=== PATIENT | female | born 1935 | race Caucasian/White ===

== ENCOUNTER 2017-11-19 01:32 | Emergency (ER) | payer MEDICARE, BC ==
[2017-11-19] MEDS ORDERED: Morphine INJ* 2 MG/ML 1 ML SYRINGE (TWO MG - NEW SYRINGE VERSION) IV ONE (02:08)
[2017-11-19] MEDS ORDERED: Labetalol IV* 5 MG/ML 20 ML VIAL IV PUSH ONE (02:08)
[2017-11-19] MEDS ORDERED: Ondansetron INJ* 2 MG/ML VIAL IV ONE (02:09)
[2017-11-19 02:33] LABS: ABS Basophils 0 10^3/ul (0-0.2); ABS Eosinophils 0.2 10^3/ul (0-0.6); ABS Lymphocytes 2.1 10^3/ul (1.0-4.8); ABS Monocytes 0.5 10^3/ul (0-0.8); ABS Neutrophils 3.6 10^3/ul (1.5-7.7); ABS Nucleated RBC 0 10^3/ul; Eosinophil % 3.1 % (0-6); Hematocrit 40 % (35-47); Hemoglobin 13.1 g/dl (12.0-16.0); Lymphocyte % 32.8 % (25-47); Mean Corpuscular HGB Conc 33 g/dl (31-36); Mean Corpuscular Hemoglobin 30 pg (27-31); Mean Corpuscular Volume 89 fL (80-97); Mean Platelet Volume 9 um3 (7.4-10.4); Nucleated Red Blood Cells % 0; Platelet Count 243 10^3/ul (150-450); Red Blood Count 4.43 10^6/ul (4.0-5.4); Red Cell Distribution Width 13 % (10.5-15); White Blood Count 6.5 10^3/ul (3.5-10.8)
[2017-11-19 02:40] LABS: INR 0.9 (0.77-1.02)
[2017-11-19 02:43] LABS: EGFR Non-African American 76.3 (>60)
[2017-11-19] MEDS ORDERED: Potassium Chlor TAB* 20 MEQ TAB.ER PO ONE (02:57)
--- NOTE | 2017-11-19 03:47 | ED ---
Laz Lynn Stephanie, scribed for Quinton Camejo MD on 11/19/17 at 0211 . Headache - HPI Summary HPI Summary: The pt is an 82 y/o F presenting to the ED with c/o LINO that began this afternoon. Symptoms include high blood pressure. The pt denies vomiting. The LINO is rated as a 5 in severity. The LINO feels better now than at onset. - History Of Current Complaint Chief Complaint: EDHeadache Stated Complaint: HEADACHE, HIGH BP Time Seen by Provider: 11/19/17 02:08 Hx Obtained From: Patient Onset/Duration: Gradual Onset, Started hours ago, Still Present Currently Pain Is: Current Pain Scale(0-10)= - 5 Timing: Constant Aggravating Factor: Nothing Allevating Factors: Nothing - Allergies/Home Medications Allergies/Adverse Reactions: Allergies Allergy/AdvReac Type Severity Reaction Status Date / Time codeine Allergy Rash Verified 11/19/17 01:43 PMH/Surg Hx/FS Hx/Imm Hx Endocrine/Hematology History: Denies: Hx Diabetes Cardiovascular History: Reports: Hx Hypertension, Hx Valvular Heart Disease - mitral valve replacement Denies: Hx Pacemaker/ICD GI History: Reports: Hx Gastroesophageal Reflux Disease History: Denies: Hx Renal Disease Musculoskeletal History: Denies: Hx Osteoporosis Sensory History: Denies: Hx Hearing Aid Psychiatric History: Denies: Hx Panic Disorder - Cancer History Cancer Type, 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 MITRAL VALVE REPAIR-PT HAS CARDS THAT STATE MRI SAFE NO METAL 2013. TUBAL LIGATION. BILATERAL CATARACT SURGERY Infectious Disease History: No Infectious Disease History: Denies: Traveled Outside the [place] in Last 30 Days - Family History Known Family History: Positive: Hypertension - Social History Occupation: Retired Lives: With Family Alcohol Use: None Substance Use Type: Reports: None Smoking Status (MU): Never Smoked Tobacco Review of Systems Negative: Fever Negative: Vomiting Positive: Headache All Other Systems Reviewed And Are Negative: Yes Physical Exam - Summary Physical Exam Summary: GENERAL: Patient is a well-developed and nourished FEMALE who is lying comfortable in the stretcher. Patient is not in any acute respiratory distress. HEAD AND FACE: No signs of trauma. No ecchymosis, hematomas or skull depressions. No sinus tenderness. EYES: PERRLA, EOMI x 2, No injected conjunctiva, no nystagmus. EARS: Hearing grossly intact. Ear canals and tympanic membranes are within normal limits. MOUTH: Oropharynx within normal limits. NECK: Supple, trachea is midline, no adenopathy, no JVD, no carotid bruit, no c- spine tenderness, neck with full ROM. CHEST: Symmetric, no tenderness at palpation LUNGS: Clear to auscultation bilaterally. No wheezing or crackles. CVS: Regular rate and rhythm, S1 and S2 present, no murmurs or gallops appreciated. ABDOMEN: Soft, non-tender. No signs of distention. No rebound no guarding, and no masses palpated. Bowel sounds are normal. EXTREMITIES: FROM in all major joints, no edema, no cyanosis or clubbing. NEURO: Alert and oriented x 3. No acute neurological deficits. Speech is normal and follows commands. SKIN: Dry and warm Triage Information Reviewed: Yes Vital Signs On Initial Exam: Initial Vitals Temp Pulse Resp BP Pulse Ox 97.9 F 91 16 179/85 96 11/19/17 01:40 11/19/17 01:40 11/19/17 01:40 11/19/17 01:40 11/19/17 01:40 Vital Signs Reviewed: Yes Diagnostics - Vital Signs Vital Signs Temp Pulse Resp BP Pulse Ox 11/19/17 01:40 97.9 F 91 16 179/85 96 - Laboratory Result Diagrams: 11/19/17 02:10 11/19/17 02:10 Lab Statement: Any lab studies that have been ordered have been reviewed, and results considered in the medical decision making process. 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 Comparison to prior studies is recommended. Headache Course/Dx - Course Course Of Treatment: The pt is an 82 y/o F presenting to the ED with c/o LINO that began earlier this evening with elevated BP. The pt was given Labetalol 10 mg IV. The pt's BP has decreased, and the pt's LINO is better. She will be dischrged home. - Diagnoses Provider Diagnoses: Hypertension, Headache Discharge - Discharge Plan Condition: Stable Disposition: HOME Patient Education Materials: Migraine Headache (ED), Hypertension (ED) Referrals: Coby Washington MD [Primary Care Provider] - 3 Days Additional Instructions: You were given Labetalol 10 mg IV in the ED. RETURN TO EMERGENCY DEPARTMENT FOR ANY NEW OR WORSENING SYMPTOMS The documentation as recorded by the Laz bills Stephanie accurately reflects the service I personally performed and the decisions made by me, Quinton Camejo MD.
[2017-11-19 03:54] VITALS: BP 151/67
--- NOTE | 2017-11-19 07:59 | RAD ---
HISTORY: Headache COMPARISONS: MRI of the brain dated July 06, 2016 TECHNIQUE: Multiple contiguous axial CT scans were obtained of the head without intravenous contrast. FINDINGS: HEMORRHAGE/INFARCT: There is no hemorrhage or acute infarct. MASSES/SHIFT: There is no mass or shift. EXTRA-AXIAL SPACES: There are no extra-axial fluid collections. SULCI AND VENTRICLES: The sulci and ventricles are normal in size and position for the patient's stated age. CEREBRUM: There is a chronic lacunar infarct of the left basal ganglia. BRAINSTEM: There are no focal parenchymal abnormalities. CEREBELLUM: There are no focal parenchymal abnormalities. VESSELS: The vessels are grossly normal. PARANASAL SINUSES: The paranasal sinuses are clear. ORBITS: The orbits are unremarkable. BONES AND SOFT TISSUE: No bone or soft tissue abnormalities are noted. OTHER: None IMPRESSION: 1. NO ACUTE INTRACRANIAL PATHOLOGY. 2. 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
== END 2017-11-19 03:56 | disposition home or self-care (01) ==
LOC: ED 01:32
DX: I10 Essential (primary) hypertension (principal); R51 Headache; Z88.5 Allergy status to narcotic agent
CPT/HCPCS: 36415; 70450; 80053; 85025; 85610; 85730; 96365; 96375; 99283; J2270

== ENCOUNTER 2018-02-10 11:31 | Inpatient (IN) | payer MEDICARE, BC ==
--- NOTE | 2018-02-01 11:59 | HP ---
HISTORY AND PHYSICAL: DATE OF SURGERY: 02/10/18 DATE OF OFFICE VISIT: 01/31/18 SURGEON: Jenny Saldana MD * (DICTATED BY DOV BENDER) PROCEDURE: Left total knee arthroplasty. CHIEF COMPLAINT: Left knee pain. HISTORY OF PRESENT ILLNESS: Ms. Melendez is an 82-year-old female with complaints of left knee pain. She has failed conservative management and elected to proceed with a left total knee arthroplasty which is scheduled for with Dr. Saldana. PAST MEDICAL HISTORY: 1. Hypertension. 2. History of a leaky heart valve. 3. History of melanoma. PAST SURGICAL HISTORY: 1. Heart valve repair. 2. Tonsillectomy. 3. Cataract removal. CURRENT MEDICATIONS: 1. Evista 60 mg daily. 2. Hydrochlorothiazide 25 mg daily. 3. Nasonex as needed. 4. Omeprazole 20 mg daily. 5. Senior multivitamin. 6. Glucosamine chondroitin. 7. Zyrtec for allergies. 8. Ibuprofen. 9. Metoprolol 25 mg twice a day. 10. Aspirin 325 every day. 11. Valsartan 80 mg daily. 12. Citrucel. ALLERGIES: None. FAMILY HISTORY: Parkinson's disease, cancer and coronary artery disease. SOCIAL HISTORY: She is an 82-year-old female. She lives with her . She does not smoke or use drugs. She uses occasional alcohol. REVIEW OF SYSTEMS: A complete 14-point review of systems was reviewed with the patient, it was all negative. She denies history of DVT, PE, hepatitis, HIV, or anesthesia problems. PHYSICAL EXAMINATION GENERAL: She is well developed, well nourished, in no acute distress. VITAL SIGNS: She stands 5 feet 3 inches tall, weighs 156 pounds. Her blood pressure is 160/90 and heart rate is 64. HEENT: Normocephalic, atraumatic. NECK: Supple. No palpable lymph nodes. PULMONARY: The lungs are clear to auscultation bilaterally. CARDIO: Regular rate and rhythm. Strong S1 and S2. ABDOMEN: Soft, nontender, and nondistended. NEUROLOGICAL: She is alert and oriented x3. Cranial nerves II through XII are intact. MUSCULOSKELETAL: Left lower extremity, the skin is intact. There is no open wounds or abrasions. She has a moderate joint effusion and tenderness over the medial and lateral joint line. Range of motion 5 to 120 degrees with patellofemoral crepitus. She has 2+ dorsalis pedis pulses. Intact sensation to lower extremities. Muscle group strengths are intact at 5/5. ASSESSMENT AND PLAN: Ms. Melendez is an 82-year-old female with end-stage osteoarthritis of the left knee. She has failed conservative management and elected to proceed with a left total knee arthroplasty which is scheduled for with Dr. Saldana. Dr. Saldana discussed the risks and benefits of surgery at today's visit and all of her questions were answered. She will follow up with Dr. Saldana 2 weeks after the surgery. DOV BENDER [id number]/CPS #: [id number] MTDD
[~2018-02-10 11:31] MED LIST: Buffered Lidocaine 0.9% SYRIN* 5 ML/SYR SYRINGE INTRADERM ONE
[2018-02-10] MEDS ORDERED: ceFAZolin 2 GM PREMIX (*) 2 GM/50 ML BAG IVPB ONE (11:40)
[2018-02-10] MEDS ORDERED: fentaNYL* 50 MCG/ML 2 ML VIAL (100 MCG VIAL) ONE (12:49)
[2018-02-10] MEDS ORDERED: Midazolam* 1 MG/ML 5 ML VIAL (5 MG) ONE (12:50)
[2018-02-10] MEDS ORDERED: Bupivacaine 0.5% PF 10 ML VIAL INJ ONE (13:09)
[2018-02-10] MEDS ORDERED: Dexamethasone IV* 4 MG/ML 1 ML (4 MG) ONE ×2 (13:26)
[2018-02-10] MEDS ORDERED: Bupivacaine 0.25% SDV* 30 ML ONE (13:29)
[2018-02-10] MEDS ORDERED: Midazolam* 1 MG/ML 2 ML VIAL (2 MG) ONE (13:56)
[2018-02-10] MEDS ORDERED: oxyCODONE/Acetamin 5/325 MG* TAB PO PRN ×3 (14:14→15:48)
[2018-02-10] MEDS ORDERED: HYDROmorphone INJ* 1 MG/ML CARPUJECT SYRINGE IV PRN (14:14)
[2018-02-10] MEDS ORDERED: HYDROcodone/ACETAMIN 5-325 MG* 1 TAB PO PRN (14:14)
[2018-02-10] MEDS ORDERED: fentaNYL* 50 MCG/ML 2 ML VIAL (100 MCG VIAL) IV PRN (14:14)
[2018-02-10] MEDS ORDERED: Naloxone* 0.4 MG/ML 1 ML VIAL IV PRN (14:14)
[2018-02-10] MEDS ORDERED: Ondansetron INJ* 2 MG/ML VIAL IV PRN ×2 (14:14→15:48)
[2018-02-10] MEDS ORDERED: DiMENhydriNATE IV* 50 MG/ML VIAL IV PUSH PRN (14:14)
[2018-02-10] MEDS ORDERED: Ondansetron INJ* 2 MG/ML SYRINGE (from 40/20 VIAL) IV ONE (15:00)
[2018-02-10] MEDS ORDERED: Magnesium Hydroxide LIQ* 30 ML UDC PO PRN (15:48)
[2018-02-10] MEDS ORDERED: Morphine VIAL* 4 MG/ML VIAL (1 ml vial) IV PRN (15:48)
[2018-02-10] MEDS ORDERED: Bisacodyl SUPP* 10 MG SUPP PR PRN (15:48)
[2018-02-10] MEDS ORDERED: Polyethylene Glycol 3350* 17 GM PACKET PO PRN (15:48)
[2018-02-10] MEDS ORDERED: Temazepam CAP* 15 MG PO PRN (15:48)
[2018-02-10] MEDS ORDERED: Cyclobenzaprine TAB* 10 MG PO PRN (15:48)
[2018-02-10] MEDS ORDERED: Ondansetron TAB* 4 MG PO PRN (15:48)
[2018-02-10] MEDS ORDERED: diPHENhydraMINE LIQ* 12.5 MG/5 ML UDC PO PRN (15:48)
[2018-02-10] MEDS ORDERED: diPHENhydraMINE IV* 50 MG/ML 1 ml VIAL (BENADRYL) IV PRN (15:48)
--- NOTE | 2018-02-10 16:38 | RAD ---
Indication: Left knee replacement. 2 views of left knee demonstrates left knee replacement in satisfactory position. No loosening is noted. IMPRESSION: Left knee replacement in satisfactory position.
[2018-02-10] MEDS ORDERED: Warfarin TAB(*) 6 MG PO ONE ×2 (17:00→23:00)
[2018-02-10] MEDS ORDERED: hydrALAZINE IV* 20 MG/ML VIAL IV SLOW PU PRN (17:27)
[2018-02-10] MEDS ORDERED: Valsartan TAB* 80 MG PO ONE (17:28)
[2018-02-10] MEDS: ceFAZolin 1 GM in Dextrose (*) 1 GM/50 ML BAG IVPB SCH (23:21)
[2018-02-10] MEDS: Docusate CAP* 100 MG PO SCH (23:24)
[2018-02-10] MEDS: Magnesium Hydroxide LIQ* 30 ML UDC PO SCH (23:35)
[2018-02-10] MEDS: Metoprolol Tartrate TAB* 50 mg PO SCH (23:36)
--- NOTE | 2018-02-10 23:55 | CONS ---
CC: Dr. Jenny Saldana; Dr. Swenson * CONSULTATION REPORT: DATE OF CONSULT: 02/10/18. CONSULTING PROVIDER: Dr. Jenny Saldana. MY ATTENDING WHILE IN THE HOSPITAL: Dr. Lakshmi Velazquez. PRIMARY CARE PROVIDER: Dr. Swenson. REASON FOR CONSULTATION: Co-management of comorbid medical conditions. HISTORY OF PRESENT ILLNESS: Ms. Melendez is an 83-year-old female with past medical history significant for severe mitral regurgitation status post annuloplasty in 2013, now with [id number] tricuspid regurgitation on recent echo with diastolic dysfunction as well as hypertension, who is status post left total knee arthroplasty. The patient is examined in the postoperative setting and has no pain, but she has no feeling in her legs. She is regaining movement in her right leg, but still is unable to move her left. The patient has spinal anesthesia and a nerve block on her left side. The patient's EBL in surgery was 250. The patient denies chest pain, shortness of breath, nausea, vomiting, dizziness, palpitations, abdominal pain, change in vision. The patient denies any recent illnesses, urinary tract infection. The patient has been having swollen legs since her mitral annuloplasty in 2013, which resolves with recumbency. The patient denies any dyspnea on exertion. The patient has decreased exercise tolerance only related to her left knee pain. The patient has been having issues with her blood pressure and recently had her valsartan and metoprolol increased. The patient held her aspirin 325 mg for 7 days and her valsartan and hydrochlorothiazide this morning. PAST MEDICAL HISTORY: Hypertension, mitral valve regurgitation, status post annuloplasty, history of melanoma on her stomach removed at age 67, grade 2 diastolic dysfunction on her most recent echocardiogram. PAST SURGICAL HISTORY: Mitral valve annuloplasty in 2013 , tonsillectomy, cataract removal, and ganglion cystectomy. CURRENT MEDICATIONS: 1. Evista 60 mg p.o. daily. 2. Hydrochlorothiazide 25 mg p.o. daily. 3. Nasonex 15 mcg both nares as needed. 4. Omeprazole 20 mg p.o. daily. 5. Senior multivitamins one tab p.o. daily. 6. Glucosamine chondroitin daily. 7. Zyrtec 10 mg p.o. daily as needed for allergies. 8. Ibuprofen as needed for pain. 9. Metoprolol tartrate 50 mg twice daily. 10. Aspirin 325 mg p.o. daily. 11. Valsartan 160 mg p.o. daily. 12. Citrucel. 13. Magnesium oxide 250 mg p.o. daily. ALLERGIES: The patient is allergic to CODEINE and LATEX. FAMILY HISTORY: The patient's father of skin cancer. The patient's mother of Alzheimer's disease and also had atrial fibrillation and CAD. The patient's brother of skin cancer. The patient's grandfather, grandmother, and additional grandfather were all due to coronary artery disease. The patient's children are in good health. SOCIAL HISTORY: The patient never smoked or used illicit drugs. The patient drinks 2 to 3 glasses of wine a week. 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 The patient's surrogate decision maker will be her , Sergio Melendez. REVIEW OF SYSTEMS: A 14-point review of systems was reviewed and is negative except as above. PHYSICAL EXAM: General: The patient is an 83-year-old female, who appears stated age and sitting comfortably in bed, in no acute distress. Vital Signs: Temperature 97.2, pulse rate 75, respiratory rate 18, oxygen saturation 96% on room air, blood pressure 188/89. HEENT: Head, normocephalic, atraumatic. Sclerae anicteric. No conjunctival injection. Nasal mucosa moist. Oral mucosa moist. No pharyngeal erythema, discharge or exudate. Neck: Supple, nontender. No lymphadenopathy. No carotid bruits auscultated. No JVD. Cardiac : Regular rate and rhythm. No clicks, murmurs, gallops or rubs. Pulses are 2+ in the bilateral dorsalis pedis, posterior tibialis, and radial areas. No calf tenderness noted. Respiratory: Clear to auscultation bilaterally. No wheezes, rales or rhonchi. Good air exchange bilaterally. Abdomen: Soft, nontender, nondistended. Bowel sounds present and normoactive in all 4 quadrants. No hepatosplenomegaly. No abdominal bruits auscultated. Genitourinary: No suprapubic or CVA tenderness. Villagomez in place, draining clear yellow urine. Neuro: Cranial nerves II through XII intact. Strength preserved in bilateral upper extremities. The patient is able to move her right lower extremities with decreased strength. The patient has no sensation in this extremity. The patient is not able to move or feel anything in her left lower extremity. Alert and oriented x3. Psychiatric: Pleasant and cooperative. DIAGNOSTIC STUDIES/LAB DATA: Laboratory data from preoperative testing; white blood cell count 8.7, hemoglobin 14.3, hematocrit 43, and platelet count 281. INR 0.87, PTT 29.5. Sodium 132, potassium 4.0, chloride 97, carbon dioxide 31, anion gap 4, BUN 21, creatinine 0.69, glucose 86, calcium 9.6. Bilirubin 0.4, AST 20, ALT 15, alkaline phosphatase 36, protein 7.5, albumin 4.1, globulin 3.4. IMPRESSION AND PLAN: Ms. Melendez is an 83-year-old female with past medical history significant for mitral valve regurgitation, hypertension, diastolic dysfunction on echocardiogram, who is status post left total knee arthroplasty and is recovering well. The patient is markedly hypertensive at this time. 1. Postoperative state management per Orthopedics. The patient has no pain at this time. The patient's pain will be controlled with Percocet, oxycodone, and morphine as needed. The patient will have her hemoglobin and hematocrit monitored, bowel regimen per primary team, Villagomez should be removed. 2. Hypertension. The patient is currently markedly hypertensive. We will prescribe hydralazine as needed for high blood pressure. We will also give the patient a half dose of her daily valsartan, which she did not take this morning to help to control her blood pressure. We will resume valsartan tomorrow morning. Continue metoprolol and hold hydrochlorothiazide at this point. This will be re- introduced as indicated as early as tomorrow morning. 3. Mitral valve regurgitation. The patient has swollen legs and no other sign of congestive heart failure. The patient did not have dyspnea on exertion. The patient was recently cleared for surgery by her gold assayer, Dr. Galdino Bauer. Due to hypertension and mitral valve regurgitation as well as diastolic dysfunction evidenced on echocardiogram, the patient will be relatively fluid sensitive and her postoperative fluids have been decreased to 75 mL an hour. The patient should monitor closely for her respiratory status. 4. FEN. The patient will have heart healthy diet without caffeine and fluids as above. 5. DVT prophylaxis. The patient will have Lovenox to warfarin per primary team protocol. 6. Code status. The patient would like to be a full code. The patient's surrogate decision maker is her , Sergio Melendez as above. 6. Disposition. The patient is inpatient, disposition per Ortho. TIME SPENT: Approximately 60 minutes was spent on this consultation, 30 of which was spent [id number] with the patient obtaining history and physical and discussing the treatment plan. This plan has been discussed with my attending, Dr. Lakshmi Velazquez, and she is in agreement. DOV NASH [id number]/CPS #: [id number] LISET
--- NOTE | 2018-02-11 01:04 | PN ---
Hospitalist Progress Note Date of Service: 02/11/18 Called by night nurse due to syncope episode. VSS, patient with no complaints of chest pain or sob. BP noted to be 114/60, ? orthostasis, plan for h and h now, bmp, ekg stat now, and tele, will follow,
[2018-02-11] MEDS: oxyCODONE TAB* 5 MG TAB PO PRN ×2 (01:25→06:28)
[2018-02-11 01:26] LABS: ABS Basophils 0 10^3/ul (0-0.2); ABS Eosinophils 0 10^3/ul (0-0.6); ABS Lymphocytes 0.6 10^3/ul (1.0-4.8); ABS Monocytes 0.5 10^3/ul (0-0.8); ABS Neutrophils 13.7 10^3/ul (1.5-7.7); ABS Nucleated RBC 0 10^3/ul; Eosinophil % 0 % (0-6); Hematocrit 34 % (35-47); Hemoglobin 11.2 g/dl (12.0-16.0); Lymphocyte % 4.3 % (25-47); Mean Corpuscular HGB Conc 33 g/dl (31-36); Mean Corpuscular Hemoglobin 30 pg (27-31); Mean Corpuscular Volume 89 fL (80-97); Mean Platelet Volume 8.5 um3 (7.4-10.4); Nucleated Red Blood Cells % 0; Platelet Count 222 10^3/ul (150-450); Red Blood Count 3.75 10^6/ul (4.0-5.4); Red Cell Distribution Width 14 % (10.5-15)
[2018-02-11 01:42] LABS: EGFR Non-African American 81.3 (>60)
[2018-02-11] MEDS ORDERED: NS 0.9% 500 ML* 500 ML IV ONE (01:59)
[2018-02-11 05:54] LABS: Hematocrit 33 % (35-47); Hemoglobin 10.9 g/dl (12.0-16.0); Mean Platelet Volume 8.8 um3 (7.4-10.4); Platelet Count 215 10^3/ul (150-450)
[2018-02-11 05:57] LABS: INR 1.01 (0.77-1.02)
[2018-02-11 06:13] LABS: EGFR Non-African American 93.7 (>60)
[2018-02-11] MEDS: ceFAZolin 1 GM in Dextrose (*) 1 GM/50 ML BAG IVPB SCH ×2 (06:18→13:44)
[2018-02-11] MEDS ORDERED: Hydrochlorothiazide TAB* 25 MG PO SCH (09:00)
[2018-02-11] MEDS ORDERED: Valsartan TAB* 80 MG PO SCH (09:00)
[2018-02-11] MEDS ORDERED: Valsartan TAB* 160 MG PO SCH (09:00)
[2018-02-11] MEDS: Docusate CAP* 100 MG PO SCH ×2 (09:06→19:46)
[2018-02-11] MEDS: Vitamin THERAPEUTIC TAB PO SCH (09:06)
[2018-02-11] MEDS: Omeprazole CAP* 20 MG PO SCH (09:06)
[2018-02-11] MEDS: Metoprolol Tartrate TAB* 50 mg PO SCH ×2 (09:06→19:46)
[2018-02-11] MEDS: Magnesium Oxide TAB* 400 MG PO SCH (09:06)
[2018-02-11] MEDS: Magnesium Hydroxide LIQ* 30 ML UDC PO SCH ×2 (09:07→19:46)
[2018-02-11] MEDS: Acetaminophen TAB* 325 MG PO PRN ×4 (09:23→22:38)
--- NOTE | 2018-02-11 12:34 | PN ---
Progress Note - Progress Note Date of Service: 02/11/18 SOAP: Subjective: 83 y/o female s/p L TKA by DR Saldana 02/10/2018. Patient with syncopal episode overnight, no improved, no lightheaded/ dizziness. Decreasing narcotic use. VSS, afebrile overnight. Would like to return home. Objective: General- Well appearing, NAD, AO SItting in chair comfortably MSK- L LE- DF/PF = b/l, PT 2+, negative homans sign, Surgical dressing intact, no drainage noted, drain removed by Dr. Saldana in AM. SITLT. Vital Signs Temp 98.2 F 02/11/18 07:35 Pulse 104 02/11/18 07:35 Resp 14 02/11/18 07:35 BP 142/56 02/11/18 07:35 Pulse Ox 93 02/11/18 07:35 Intake & Output 02/10/18 02/11/18 02/11/18 18:59 06:59 18:59 Intake Total 2700 1750 Output Total 1625 695 Balance 1075 1055 Weight 70.942 kg Intake: IV Fluids 2400 500 LR 2400 NS (0.9%) 500 Oral 300 1250 Output: Villagomez 1625 695 Assessment: Stable 83 y/o female s/p L TKA by DR Saldana 02/10/2018. Plan: - DVT prophylaxis- lovenox, coumadin- 6mg tonight. - Continue PT/ OT - Follow up with Dr. Saldana within 10-14 days - H&H - stable - post-op IV ABX - RUnning - Patient would like D/C to home. - Hospitalists following for cards, syncopal episodes. Acetaminophen (Tylenol Tab*) 650 mg PO Q4H PRN PRN Reason: PAIN OR TEMPERATURE Last Admin: 02/11/18 09:23 Dose: 650 mg Bisacodyl (Dulcolax Supp*) 10 mg OH DAILY PRN PRN Reason: constipation Cyclobenzaprine HCl (Flexeril Tab*) 5 mg PO TID PRN PRN Reason: SPASMS Diphenhydramine HCl (Benadryl Iv*) 12.5 mg IV Q6H PRN PRN Reason: PRURITIS Diphenhydramine HCl (Benadryl Liq*) 12.5 mg PO Q6H PRN PRN Reason: itching Docusate Sodium (Colace Cap*) 100 mg PO BID [facility] Last Admin: 02/11/18 09:06 Dose: 100 mg Enoxaparin Sodium (Lovenox(*)) 30 mg SUBCUT Q24H [facility] Cefazolin Sodium/Dextrose (Kefzol 1 Gm In Dextrose Duplex (*)) 1 gm in 50 mls @ 200 mls/hr IVPB Q8H [facility] Stop: 02/11/18 14:14 Last Admin: 02/11/18 06:18 Dose: 200 mls/hr Lactated Ringer's (Lactated Ringers 1000 Ml Bag*) 1,000 mls @ 75 mls/hr IV PER RATE [facility] Last Admin: 02/10/18 20:04 Dose: 75 mls/hr Lactulose (Lactulose*) 30 ml PO Q6H PRN PRN Reason: constipation Magnesium Hydroxide (Milk Of Magnesia Liq*) 30 ml PO BID [facility] Last Admin: 02/11/18 09:07 Dose: 30 ml Magnesium Hydroxide (Milk Of Magnesia Liq*) 30 ml PO Q6H PRN PRN Reason: constipation Magnesium Oxide (Magox 400 Tab*) 400 mg PO DAILY [facility] Last Admin: 02/11/18 09:06 Dose: 400 mg Metoprolol Tartrate (Lopressor Tab*) 50 mg PO BID [facility] Last Admin: 02/11/18 09:06 Dose: 50 mg Morphine Sulfate (Morphine Vial*) 2 mg IV Q2H PRN PRN Reason: PAIN Multivitamins (Theragran Tab*) 1 tab PO DAILY [facility] Last Admin: 02/11/18 09:06 Dose: 1 tab Naloxone HCl (Narcan*) 0.08 mg IV Q2M PRN PRN Reason: severe induced resp depression Stop: 02/11/18 14:13 Omeprazole (Prilosec Cap*) 20 mg PO DAILY [facility] Last Admin: 02/11/18 09:06 Dose: 20 mg Ondansetron HCl (Zofran Inj*) 4 mg IV Q6H PRN PRN Reason: nausea Ondansetron HCl (Zofran Tab*) 4 mg PO Q6H PRN PRN Reason: NAUSEA Oxycodone HCl (Roxycodone Tab*) 10 mg PO Q4H PRN PRN Reason: pain Last Admin: 02/11/18 06:28 Dose: 5 mg Oxycodone/Acetaminophen (Percocet 5/325 Tab*) 2 tab PO Q4H PRN PRN Reason: PAIN Last Admin: 02/11/18 04:14 Dose: 2 tab Oxycodone/Acetaminophen (Percocet 5/325 Tab*) 1 tab PO Q4H PRN PRN Reason: PAIN Last Admin: 02/10/18 23:24 Dose: 1 tab Pharmacy Profile Note (Coumadin Daily Reminder*) 1 note FOLLOW UP 1700 RICHELLE Polyethylene Glycol/Electrolytes (Miralax*) 17 gm PO DAILY PRN PRN Reason: Constipation Temazepam (Restoril Cap*) 15 mg PO BEDTIME PRN PRN Reason: INSOMNIA Warfarin Sodium (Coumadin Tab(*)) 6 mg PO ONCE@1700 ONE PRN Reason: Protocol Stop: 02/11/18 17:01 Laboratory Results - last 24 hr 02/11/18 02/11/18 02/11/18 01:20 01:20 05:24 WBC 15.0 H RBC 3.75 L Hgb 11.2 L 10.9 L Hct 34 L 33 L MCV 89 MCH 30 MCHC 33 RDW 14 Plt Count 222 215 MPV 8.5 8.8 Neut % (Auto) 91.9 H Lymph % (Auto) 4.3 L Moca % (Auto) 3.6 Eos % (Auto) 0 Baso % (Auto) 0.2 Absolute Neuts (auto) 13.7 H Absolute Lymphs (auto) 0.6 L Absolute Monos (auto) 0.5 Absolute Eos (auto) 0 Absolute Basos (auto) 0 Absolute Nucleated RBC 0 Nucleated RBC % 0 INR (Anticoag Therapy) Sodium 132 L Potassium 3.9 Chloride 100 L Carbon Dioxide 26 Anion Gap 6 BUN 21 Creatinine 0.69 Est GFR ( Amer) 104.5 Est GFR (Non-Af Amer) 81.3 BUN/Creatinine Ratio 30.4 H Glucose 182 H Calcium 8.6 02/11/18 02/11/18 05:24 05:24 WBC RBC Hgb Hct MCV MCH MCHC RDW Plt Count MPV Neut % (Auto) Lymph % (Auto) Moca % (Auto) Eos % (Auto) Baso % (Auto) Absolute Neuts (auto) Absolute Lymphs (auto) Absolute Monos (auto) Absolute Eos (auto) Absolute Basos (auto) Absolute Nucleated RBC Nucleated RBC % INR (Anticoag Therapy) 1.01 Sodium 132 L Potassium 3.8 Chloride 101 Carbon Dioxide 25 Anion Gap 6 BUN 21 Creatinine 0.61 Est GFR ( Amer) 120.5 Est GFR (Non-Af Amer) 93.7 BUN/Creatinine Ratio 34.4 H Glucose 160 H Calcium 8.5 L
[2018-02-11] MEDS: Enoxaparin(*) 30 MG/0.3 ML SYR SUBCUT SCH (12:44)
--- NOTE | 2018-02-11 12:53 | OP ---
OPERATIVE REPORT: DATE OF SURGERY: 02/10/18 DATE OF : 35 SURGEON: Jenny Saldana MD CLAIMS ATTORNEY: DOV Art Soraya did help throughout the procedure with preparation of the leg, wound retraction, manip ulation of the knee and wound closure. ANESTHESIOLOGIST: Dr. Smart. ANESTHESIA: Spinal. PRE-OP DIAGNOSIS: Severe end-stage degenerative osteoarthritis of the left knee joint. POST-OP DIAGNOSIS: Severe end-stage degenerative osteoarthritis of the left knee joint. OPERATIVE PROCEDURE: Left total knee arthroplasty. TOURNIQUET TIME: 43 minutes. COMPLICATIONS: None. ESTIMATED BLOOD LOSS: 300 cc. SPECIMEN: Bone and cartilage from the left knee joint sent to Pathology. HARDWARE USED: This is cemented [employer] hardware. Two packages of Simplex bone cement. Fo r the femur, a left size 4 posterior stabilized Legion femoral component. For the tibia, size 3 left Jennifer II tibial baseplate. For the insert, a 9-mm constrained articular insert size 3/4 and for t he patella, a 29- mm 7.5 thickness 3-peg all poly patella. BRIEF HISTORY/INDICATIONS: Ms. Melendez is an 83-year-old female with years of increasingly severe lef t knee pain. Radiographs showed [id number] valgus arthritis. She failed conservative treatment wi th anti-inflammatories, pain medication, intra-articular injection and physical therapy. Due to cont inued pain and decreased quality of life, she elected to undergo left total knee arthroplasty. Inform ed consent was obtained from the patient. She understood the risks of surgery included, but were not limited to bleeding, infection, damage to nearby structures, continued pain, need for further surger y, intraoperative fracture, nerve palsy, hardware failure or loosening, knee stiffness, loss of motio n, stroke, heart attack, blood clot, and . She wished to proceed. INTRAOPERATIVE FINDINGS: Intraoperatively, the patient was noted to have extreme osteopenia. She noble d full thickness loss of cartilage in all 3 compartments. DESCRIPTION OF PROCEDURE: Ms. Melendez was identified in the preanesthesia unit. Her left lower extrem ity was marked as the correct operative side. Informed consent was signed and placed in the chart. The patient was taken to the operating room and placed under spinal anesthesia. A Villagomez catheter was placed. Tourniquet was placed on the left thigh. Left lower extremity was prepped and draped in th e usual sterile fashion. Preop time-out was made to correctly identify the patient, side, and site. Appropriate perioperative antibiotics were given within 1 hour of incision. Tourniquet was inflated and total tourniquet time for this procedure was 44 minutes. A 12-cm midline incision was made with a 10 blade and carried down to the extensor mechanism. A new 10-blade was us ed to make a standard medial parapatellar arthrotomy. The patella was subluxed laterally. Electroca utery was used to subperiosteally elevate the soft tissue off the superomedial tibia to the mid sagit kamila plane. Medial tibial osteophytes were carefully removed. The knee was flexed up. Anterior horn of the lateral meniscus and ACL were sharply released. A drill was used to enter the distal femur. Intramedullary distal femoral cutting guide was placed and pinned into the position. Oscillating sa w was used to make the distal femoral cut. Next, the external rotation guide was pinned on the dista l femur and the distal femur was sized to a size 4. Size 4 multi-cutting jig was pinned on the dista l femur. Oscillating saw was used to make the appropriate chamfer cuts. The PCL was completely released. The tibia was subluxed anteriorly. Extramedullary tibial cutting gu preeti was pinned on the proximal tibia. Oscillating saw was used to make a proximal tibial cut perpend icular to the mechanical axis of the tibia. The bone was carefully removed. The knee was brought ou t into full extension. A spacer block had good fit. Some MCL laxity was noted and this was baseline . Preop amount of MCL laxity. A small amount of soft tissue released laterally, improved the medial and lateral ligamentous balancing. Flexion and extension gaps were well balanced. The knee was fle xed up. Lamina neuro psych sales specialist was placed both medially and laterally. Any remaining meniscus was carefull y removed using electrocautery. A sized 4 left distal femoral trial was impacted onto the distal femur and had excellent fit. The gaviota x for the posterior stabilized implant was prepared using a reamer and box cut osteotome. A size 3 t ibial baseplate with a 9-mm insert trial was placed and the knee was brought out into full extension. Knee had good range of motion from full extension to 130 degrees of flexion with satisfactory martin lofemoral tracking. The patella was everted. A 7-mm of patellar bone and cartilage was carefully re moved using an oscillating saw. Patella was sized to a size 29. Three peg holes were drilled throug h the size 29 guide. A 29 patellar trial was placed and the knee was taken through a range of motion . The patellofemoral tracking was satisfactory. All trials were removed. The tibia was subluxed an teriorly and sized to a size 3. Proximal tibia was prepared using a size 3 keel punch. All bony cut surfaces were copiously irrigated with sterile saline and dried. Final implants were cemented into place starting with the tibia, followed by the femur and last the patella. A 9-mm insert trial was placed and the knee was brought out into full extension. Tourniquet was turned down at 43 minutes. The knee was copiously irrigated. Electrocautery was used to obtain meticulous hemostasis. As soon as the cement was fully cured, the insert trial was removed . Any excess cement was removed from around the capsule and hardware. Final insert chosen was a 9-m m size 3-4 constrained articular insert. This was locked into position on the tibial tray. Stability of the insert was checked and rechecked and noted to be stable. The knee was once again copiously irrigated with sterile saline. Extensor mechanism was closed using interrupted #1 Vicryls over a medium Hemovac drain. The rest of the incision was closed in a layere d fashion using 0 and 2-0 Vicryls. The skin was closed using running 3-0 nylon suture. Sterile Xero form, 4x4s, and Webril were used to cover the incision. Aston wrap and cold pack were placed over this . The patient's anesthesia was reversed without difficulty. She was taken to the PACU in stable cond ition. Intended weightbearing will be weightbearing as tolerated. Intended DVT prophylaxis will be Coumadin with a Lovenox bridge. [id number]/[facility] #: [id number]
[2018-02-11] MEDS ORDERED: Warfarin TAB(*) 6 MG PO ONE (17:00)
--- NOTE | 2018-02-11 18:29 | PN ---
Subjective Date of Service: 02/11/18 Interval History: Patient was seen and examined earlier this AM. Events noted form last night, a syncopal episode likely secondary to orthostatic hypotension. Patient is feeling much better this AM. She ate her breakfast, denies any complaints. No chest pain, headaches, dizziness, dyspnea or SOB. Labs and EKG reviewed, no changes or concerns for hemodynamics. Seen earlier by , Villagomez catheter and TEENA drain removed. Awaiting PT eval to ambulate, anticipate to stay inpatient today. Family History: Unchanged from Admission Social History: Unchanged from Admission Past Medical History: Unchanged from Admission Objective Active Medications: Acetaminophen (Tylenol Tab*) 650 mg PO Q4H PRN PRN Reason: PAIN OR TEMPERATURE Last Admin: 02/11/18 13:40 Dose: 650 mg Bisacodyl (Dulcolax Supp*) 10 mg [place] DAILY PRN PRN Reason: constipation Cyclobenzaprine HCl (Flexeril Tab*) 5 mg PO TID PRN PRN Reason: SPASMS Diphenhydramine HCl (Benadryl Iv*) 12.5 mg IV Q6H PRN PRN Reason: PRURITIS Diphenhydramine HCl (Benadryl Liq*) 12.5 mg PO Q6H PRN PRN Reason: itching Docusate Sodium (Colace Cap*) 100 mg PO BID [facility] Last Admin: 02/11/18 09:06 Dose: 100 mg Enoxaparin Sodium (Lovenox(*)) 30 mg SUBCUT Q24H [facility] Last Admin: 02/11/18 12:44 Dose: 30 mg Lactated Ringer's (Lactated Ringers 1000 Ml Bag*) 1,000 mls @ 75 mls/hr IV PER RATE [facility] Last Admin: 02/10/18 20:04 Dose: 75 mls/hr Lactulose (Lactulose*) 30 ml PO Q6H PRN PRN Reason: constipation Magnesium Hydroxide (Milk Of Magnesia Liq*) 30 ml PO BID [facility] Last Admin: 02/11/18 09:07 Dose: 30 ml Magnesium Hydroxide (Milk Of Magnesia Liq*) 30 ml PO Q6H PRN PRN Reason: constipation Magnesium Oxide (Magox 400 Tab*) 400 mg PO DAILY [facility] Last Admin: 02/11/18 09:06 Dose: 400 mg Metoprolol Tartrate (Lopressor Tab*) 50 mg PO BID [facility] Last Admin: 02/11/18 09:06 Dose: 50 mg Morphine Sulfate (Morphine Vial*) 2 mg IV Q2H PRN PRN Reason: PAIN Multivitamins (Theragran Tab*) 1 tab PO DAILY [facility] Last Admin: 02/11/18 09:06 Dose: 1 tab Omeprazole (Prilosec Cap*) 20 mg PO DAILY [facility] Last Admin: 02/11/18 09:06 Dose: 20 mg Ondansetron HCl (Zofran Inj*) 4 mg IV Q6H PRN PRN Reason: nausea Ondansetron HCl (Zofran Tab*) 4 mg PO Q6H PRN PRN Reason: NAUSEA Oxycodone HCl (Roxycodone Tab*) 10 mg PO Q4H PRN PRN Reason: pain Last Admin: 02/11/18 06:28 Dose: 5 mg Oxycodone/Acetaminophen (Percocet 5/325 Tab*) 2 tab PO Q4H PRN PRN Reason: PAIN Last Admin: 02/11/18 04:14 Dose: 2 tab Oxycodone/Acetaminophen (Percocet 5/325 Tab*) 1 tab PO Q4H PRN PRN Reason: PAIN Last Admin: 02/10/18 23:24 Dose: 1 tab Pharmacy Profile Note (Coumadin Daily Reminder*) 1 note FOLLOW UP 1700 [facility] Last Admin: 02/11/18 17:07 Dose: 1 note Polyethylene Glycol/Electrolytes (Miralax*) 17 gm PO DAILY PRN PRN Reason: Constipation Temazepam (Restoril Cap*) 15 mg PO BEDTIME PRN PRN Reason: INSOMNIA Vital Signs - 8 hr 02/11/18 02/11/18 02/11/18 11:32 15:28 16:00 Temperature 97.4 F 97.9 F Pulse Rate 94 89 Respiratory 16 16 Rate Blood Pressure 117/43 131/44 (mmHg) O2 Sat by Pulse 93 97 93 Oximetry Oxygen Devices in Use Now: None Appearance: Comfortable in bed, finished her breakfast, in NAD. Eyes: No Scleral Icterus, PERRLA Ears/Nose/Mouth/Throat: Clear Oropharnyx, Mucous Membranes Moist Neck: NL Appearance and Movements; NL JVP, Trachea Midline Respiratory: Symmetrical Chest Expansion and Respiratory Effort, Clear to Auscultation Cardiovascular: NL Sounds; No Murmurs; No JVD, RRR Abdominal: NL Sounds; No Tenderness; No Distention Extremities: No Edema, - - LLE with clean and dry HEIDI dressing. No swelling or ecchymosis noted. Sensation intact. Skin: No Rash or Ulcers Neurological: Alert and Oriented x 3, NL Sensation, NL Muscle Strength and Tone Lines/Tubes/Other Access: Clean, Dry and Intact Peripheral IV Nutrition: Taking PO's Result Diagrams: 02/11/18 05:24 02/11/18 05:24 Additional Lab and Data: . Microbiology and Other Data: . Diagnostic Imaging: . EKG Data: EKG INTERPRETATION ECG Report Patient Name CRISTI GAYLE Birthdate 1935 Sex F Order Number [id number] Date of ECG 02/11/2018 01:50:12 Interpretation Sinus rhythm.normal P axis, V-rate 60- 99 - NORMAL ECG - NO SIGNIFICANT CHANGES SINCE THE PREVIOUS RECORD OF 12 Lead 06/01/2016 23:01:30 Electronically signed on 02/11/2018 at 07:33 by Cruz Crowley MD Assess/Plan/Problems-Billing Assessment: An 83 y/o female with PMH of HTN, mitral valve regurgitation and distolic dysfunction, who is POD#1, s/p left total knee arthroplasty, doing better now, after a syncopal episode last night secondary to orthostatic hypotension. - Patient Problems (1) Knee joint replacement status Current Visit: Yes Status: Acute Priority: High Comment: - Management per ortho - PT/OT eval, consider STR at SNF on Wednesday - Pain well controlled (2) Hypertension Current Visit: Yes Status: Acute Comment: - Hypertensive intially immediate post-op period and PACU, then hypotensive rebound likely due to spinal anasthetic and narcotics - BP appears well controlled this AM - Continue Metoprolol, hold HCTZ (3) Syncope Current Visit: Yes Status: Acute Priority: High Comment: - Likely secondary to orthostatic hypotension - H/H rechecked last night, hemodynamically stable - Will continue to monitor (4) Orthostatic hypotension Current Visit: Yes Status: Acute Comment: - Resolved (5) Mitral regurgitation Current Visit: Yes Status: Acute Comment: - Stable (6) DVT (deep venous thrombosis) Current Visit: Yes Status: Acute Comment: - Lovenox to Warfarin per ortho team protocol (7) Full code status Current Visit: Yes Status: Acute Status and Disposition: Inpatient. Anticipate discharge to home on PT, or STR at SNF when medically stable.
[2018-02-12] MEDS: Acetaminophen TAB* 325 MG PO PRN ×3 (03:27→11:58)
[2018-02-12 05:45] LABS: Hematocrit 30 % (35-47); Mean Platelet Volume 8.8 um3 (7.4-10.4); Platelet Count 203 10^3/ul (150-450)
[2018-02-12 05:51] LABS: INR 1.67 (0.77-1.02)
[2018-02-12] MEDS: Magnesium Hydroxide LIQ* 30 ML UDC PO SCH (08:25)
[2018-02-12] MEDS: Magnesium Oxide TAB* 400 MG PO SCH (08:26)
[2018-02-12] MEDS: Omeprazole CAP* 20 MG PO SCH (08:26)
[2018-02-12] MEDS: Metoprolol Tartrate TAB* 50 mg PO SCH (08:26)
[2018-02-12] MEDS: Docusate CAP* 100 MG PO SCH (08:26)
[2018-02-12] MEDS: Vitamin THERAPEUTIC TAB PO SCH (08:26)
--- NOTE | 2018-02-12 10:18 | PN ---
Progress Note - Progress Note Date of Service: 02/12/18 SOAP: Subjective: Pt states she is doing well pain controlled. She denies dizziness or recent syncopal episodes. She is doing well with PT. Denies N/T, F/C, CP/SOB and is doing well otherwise Objective: PE: 83 y/o WDWN F NAD, A&O x 3 LLE- dressing changes, inc c/d/i, no warmth or erythema, +DF/PF ankle, calf soft NT, NVI Vital Signs Temp Pulse Resp BP Pulse Ox 98.2 F 88 16 137/45 98 02/12/18 07:14 02/12/18 07:14 02/12/18 08:00 02/12/18 07:14 02/12/18 08:29 Laboratory Results - last 24 hr 02/12/18 02/12/18 05:36 05:36 Hgb 10.0 L Hct 30 L Plt Count 203 MPV 8.8 INR (Anticoag Therapy) 1.67 H Assessment: Stable 83 y/o female s/p L TKA by DR Saldana 02/10/2018. Has episode syncope post op Plan: - Cont coumadin DVT prophylaxis, Tylenol and tramadol for pain and colace for constipation - Continue PT/ OT - Follow up with Dr. Saldana within 10-14 days - Syncope and BP normalized -DC to home with VNS today
[2018-02-12 11:24] VITALS: BP 139/57
[2018-02-12] MEDS: Enoxaparin(*) 30 MG/0.3 ML SYR SUBCUT SCH (11:59)
--- NOTE | 2018-02-12 13:12 | PN ---
Subjective Date of Service: 02/12/18 Interval History: Mrs. Melendez is doing very well today. She slept well last night, tolerating PT and denies any pain. No dizziness, headaches, near-syncope, chest pain or SOB. She was seen earlier by ortho team, plan to discharge her back to home. She has no complaints today. Family History: Unchanged from Admission Social History: Unchanged from Admission Past Medical History: Unchanged from Admission Objective Active Medications: Acetaminophen (Tylenol Tab*) 650 mg PO Q4H PRN PRN Reason: PAIN OR TEMPERATURE Last Admin: 02/12/18 11:58 Dose: 650 mg Bisacodyl (Dulcolax Supp*) 10 mg ND DAILY PRN PRN Reason: constipation Cyclobenzaprine HCl (Flexeril Tab*) 5 mg PO TID PRN PRN Reason: SPASMS Diphenhydramine HCl (Benadryl Iv*) 12.5 mg IV Q6H PRN PRN Reason: PRURITIS Diphenhydramine HCl (Benadryl Liq*) 12.5 mg PO Q6H PRN PRN Reason: itching Docusate Sodium (Colace Cap*) 100 mg PO BID [facility] Last Admin: 02/12/18 08:26 Dose: 100 mg Enoxaparin Sodium (Lovenox(*)) 30 mg SUBCUT Q24H [facility] Last Admin: 02/12/18 11:59 Dose: 30 mg Lactated Ringer's (Lactated Ringers 1000 Ml Bag*) 1,000 mls @ 75 mls/hr IV PER RATE [facility] Last Admin: 02/10/18 20:04 Dose: 75 mls/hr Lactulose (Lactulose*) 30 ml PO Q6H PRN PRN Reason: constipation Magnesium Hydroxide (Milk Of Magnesia Liq*) 30 ml PO BID [facility] Last Admin: 02/12/18 08:25 Dose: 30 ml Magnesium Hydroxide (Milk Of Magnesia Liq*) 30 ml PO Q6H PRN PRN Reason: constipation Magnesium Oxide (Magox 400 Tab*) 400 mg PO DAILY [facility] Last Admin: 02/12/18 08:26 Dose: 400 mg Metoprolol Tartrate (Lopressor Tab*) 50 mg PO BID [facility] Last Admin: 02/12/18 08:26 Dose: 50 mg Morphine Sulfate (Morphine Vial*) 2 mg IV Q2H PRN PRN Reason: PAIN Multivitamins (Theragran Tab*) 1 tab PO DAILY [facility] Last Admin: 02/12/18 08:26 Dose: 1 tab Omeprazole (Prilosec Cap*) 20 mg PO DAILY [facility] Last Admin: 02/12/18 08:26 Dose: 20 mg Ondansetron HCl (Zofran Inj*) 4 mg IV Q6H PRN PRN Reason: nausea Ondansetron HCl (Zofran Tab*) 4 mg PO Q6H PRN PRN Reason: NAUSEA Oxycodone HCl (Roxycodone Tab*) 10 mg PO Q4H PRN PRN Reason: pain Last Admin: 02/11/18 06:28 Dose: 5 mg Oxycodone/Acetaminophen (Percocet 5/325 Tab*) 2 tab PO Q4H PRN PRN Reason: PAIN Last Admin: 02/11/18 04:14 Dose: 2 tab Oxycodone/Acetaminophen (Percocet 5/325 Tab*) 1 tab PO Q4H PRN PRN Reason: PAIN Last Admin: 02/10/18 23:24 Dose: 1 tab Pharmacy Profile Note (Coumadin Daily Reminder*) 1 note FOLLOW UP 1700 [facility] Last Admin: 02/11/18 17:07 Dose: 1 note Polyethylene Glycol/Electrolytes (Miralax*) 17 gm PO DAILY PRN PRN Reason: Constipation Temazepam (Restoril Cap*) 15 mg PO BEDTIME PRN PRN Reason: INSOMNIA Last Admin: 02/11/18 22:39 Dose: 15 mg Vital Signs - 8 hr 02/12/18 02/12/18 02/12/18 07:14 08:00 08:29 Temperature 98.2 F Pulse Rate 88 Respiratory 16 16 Rate Blood Pressure 137/45 (mmHg) O2 Sat by Pulse 98 98 98 Oximetry 02/12/18 11:05 Temperature 97.5 F Pulse Rate 78 Respiratory 16 Rate Blood Pressure 139/57 (mmHg) O2 Sat by Pulse 99 Oximetry Oxygen Devices in Use Now: None Appearance: Sitting on her chair, dressed and ready for discharge, appears comfortable and in NAD. Eyes: No Scleral Icterus, PERRLA Ears/Nose/Mouth/Throat: Clear Oropharnyx, Mucous Membranes Moist Neck: NL Appearance and Movements; NL JVP, Trachea Midline Respiratory: Symmetrical Chest Expansion and Respiratory Effort, Clear to Auscultation Cardiovascular: NL Sounds; No Murmurs; No JVD, RRR Abdominal: NL Sounds; No Tenderness; No Distention Extremities: No Edema Skin: No Rash or Ulcers Neurological: Alert and Oriented x 3, NL Sensation, NL Muscle Strength and Tone Nutrition: Taking PO's Result Diagrams: 02/12/18 05:36 02/11/18 05:24 Additional Lab and Data: . Microbiology and Other Data: . Diagnostic Imaging: . EKG Data: . Assess/Plan/Problems-Billing Assessment: An 83 y/o female with PMH of HTN, mitral valve regurgitation and distolic dysfunction, who is POD#2, s/p left total knee arthroplasty, doing better very well and being discharged to home this morning. - Patient Problems (1) Knee joint replacement status Current Visit: Yes Status: Acute Priority: High Comment: - Management per ortho - PT/OT eval, patient will recieve visiting nurses and PT at home - Pain well controlled (2) Hypertension Current Visit: Yes Status: Acute Comment: - BP well controlled this AM - Continue home meds upon discharge including HCTZ (3) Syncope Current Visit: Yes Status: Acute Priority: High Comment: - Likely secondary to orthostatic hypotension - H/H rechecked today, hemodynamically stable (4) Orthostatic hypotension Current Visit: Yes Status: Acute Comment: - Resolved (5) Mitral regurgitation Current Visit: Yes Status: Acute Comment: - Stable (6) DVT (deep venous thrombosis) Current Visit: Yes Status: Acute Comment: - Warfarin per ortho team, check INR on Wednesday (7) Full code status Current Visit: Yes Status: Acute Status and Disposition: Inpatient. Anticipate discharge to home today per ortho team. From a medical standpoint, patient had done very well. She will resume her meds at home and advised to follow up with PCP in 2 weeks.
--- NOTE | 2018-02-12 21:28 | DS ---
DISCHARGE SUMMARY: DATE OF ADMISSION: 02/10/18 DATE OF DISCHARGE: 02/12/18 PROVIDER: Dr. Jenny Saldana.* (DICTATED BY DOV RAHMAN) ADMITTING DIAGNOSIS: Status post left total knee arthroplasty for left knee osteoarthritis. SECONDARY DIAGNOSES: 1. Hypertension. 2. Valvular disease. 3. History of melanoma. CONSULTATION: PT, OT, and Medicine. HISTORY OF PRESENT ILLNESS: Ms. Melendez is an 83-year-old female who presented to the clinic with complaints of left knee pain due to severe end-stage osteoarthritis. She failed conservative measures and elected to proceed with a left total knee arthroplasty on 02/10/[address] Saldana. HOSPITAL COURSE: The patient was admitted to [facility] on 02/10/18. She underwent a left total knee arthroplasty. Postoperatively, she recovered on the short-stay surgical unit. Postop day 1, the Villagomez was removed. She was able to urinate on her own. She was advanced to a regular diet without difficulty and her pain was controlled with oral pain medications and Tylenol. She was restarted on her home medications. Labs and vitals remained stable. She did have one episode of syncope after anesthesia. With the pain meds, that improved. She became normotensive. She was able to weight bear as tolerated on the left lower extremity. She advanced appropriately with physical therapy and occupational therapy. DVT prophylaxis was managed with Lovenox and Coumadin until she reached therapeutic INR. By postop day 2, she was orthopedically and medically stable for discharge to home with VNS services. DISCHARGE CONDITION: Stable. DISCHARGE MEDICATIONS: Home medications continued on discharge to include: 1. Glucosamine and chondroitin 1 tab by mouth daily. 2. Multivitamin 1 by mouth daily. 3. Cetirizine 10 mg 1 by mouth every evening. 4. Diovan 80 mg 1 by mouth in the morning. 5. Methylcellulose 500 mg 1 by mouth daily. 6. Vitamin D3 1000 units 1 by mouth daily. 7. Magnesium oxide 400 mg 1 by mouth daily. 8. Metoprolol 50 mg 1 by mouth twice a day. 9. Hydrochlorothiazide 25 mg 1 by mouth in the morning. 10. Omeprazole 20 mg 1 by mouth daily. 11. Evista 60 mg 1 by mouth daily. 12. Nasonex 1 spray both nares daily. 13. Aspirin 325 mg 1 by mouth daily. The patient was told to discontinue this while on the Coumadin, will restart after one month of Coumadin is done. 14. Tylenol 325 mg 2 tabs every 4 hours as needed for pain. New medications on discharge to include: 1. Colace 100 mg 1 by mouth twice a day. 2. Tramadol 50 mg 1 to 2 tabs every 6 hours as needed for pain. 3. Coumadin 2 mg 1 to 5 tabs daily as directed by physician. DISCHARGE INSTRUCTIONS: The patient will be weight bearing as tolerated on the left lower extremity. She will continue physical therapy and occupational therapy. It is okay for her to shower postop day 3. No bathing, swimming, submerging wound. Use gentle soap and pat dry. Cover with gauze, Aston, and tape. Call ortho office with increased drainage, redness, increased pain or fever, go to the ER with shortness of breath or chest pain. Diet: Regular diet. Increase fluids and fiber to prevent constipation. Use stool softeners. Call with no bowel movement within 48 hours. Continue PT and OT exercises as shown. Visiting nurses to do wound checks and blood draws for INRs on Wednesday and . Take Coumadin for DVT prophylaxis for 1 month postop. Dosing on 02/12/18, 8 mg; dosing on 02/13/18, 6 mg. Her INR on 02/12/18 was 1.67. Redraw on 02/14/18. The patient was instructed not to take aspirin, ibuprofen, or naproxen while on the Coumadin. Continue pain control with tramadol 1 to 2 every 6 hours, maximum of 8 a day, and Tylenol as needed for pain. She will require antibiotics prior to any dental work in the future. She will follow up with Dr. Saldana 10 to 14 days postop. DOV RAHMAN [id number]/[facility] #: [id number] [facility]ENTER[facility]to[facility]
== END 2018-02-12 14:10 | disposition home health service (06) | DRG 470 ==
LOC: AA 11:31 → UNDOADMIN 11:31 → SSU 15:48 → AA 15:48 → SSU 02-11 16:14
PROVIDERS: ADMIT Orthopaedic Surgery Adult Reconstructive Orthopaedic Surgery; ATTEND Orthopaedic Surgery Adult Reconstructive Orthopaedic Surgery
PROC: 0SRD0J9 Replacement of Left Knee Joint with Synthetic Substitute, Cemented, Open Approach (ICD-10-PCS; principal; 2018-02-10 14:00)
DX: M17.12 Unilateral primary osteoarthritis, left knee (principal); I10 Essential (primary) hypertension; K21.9 Gastro-esophageal reflux disease without esophagitis; M85.862 Other specified disorders of bone density and structure, left lower leg; M25.762 Osteophyte, left knee; E78.00 Pure hypercholesterolemia, unspecified; I07.1 Rheumatic tricuspid insufficiency; I27.20 Pulmonary hypertension, unspecified; M81.0 Age-related osteoporosis without current pathological fracture; I95.1 Orthostatic hypotension; Z79.01 Long term (current) use of anticoagulants; Z88.5 Allergy status to narcotic agent; Z95.2 Presence of prosthetic heart valve; Z91.040 Latex allergy status; Z98.51 Tubal ligation status; Z79.82 Long term (current) use of aspirin; Z85.820 Personal history of malignant melanoma of skin; Z80.9 Family history of malignant neoplasm, unspecified; Z82.0 Family history of epilepsy and other diseases of the nervous system; Z82.49 Family history of ischemic heart disease and other diseases of the circulatory system; Z98.49 Cataract extraction status, unspecified eye; Z72.89 Other problems related to lifestyle
CPT/HCPCS: 36415; 80048; 85014; 85018; 85025; 85049; 85610; 88305; 88311; 93005; A9270-GY; C1776; G8978-GP-CI; G8978-GP-CK; G8979-GP-CI; G8987-GO-CK; G8988-GO-CI; J0690; J1100; J1650; J2250; J2405; J3010

== ENCOUNTER 2018-11-15 11:51 | Emergency (ER) | payer MEDICARE, BC, OTHER ==
--- NOTE | 2018-11-15 12:17 | ED ---
Palpitations / Dysrhythmia - HPI Summary HPI Summary: Pt is an 83 y/o female who presents to the ED c/o dizziness. She was sent from her PCP and was found to be in AFib. Her blood pressure was low, which is unusual since she has HTN. Pt began to feel symptoms at 9:30 this morning, but notes she slept poorly so possibly had symptoms prior to this time. As per family, pt had chest tightness and SOB earlier, which has no resolved. The family also notes pt seems to have difficulty coming up with words. Pt states she feels odd, and reports dizziness, mild general weakness, near-syncope, and. She denies any palpitations, N/V/D, diaphoresis, or urinary sx. PMHx mitral regurgitation, which was corrected with a repair in 2013. HR around 130 while in room. Pt was on Coumadin several years ago for a stroke, but hasnt taken the medication in several years. Pt takes daily ASA. - History of Current Complaint Chief Complaint: EDDysrhythmPalp Time Seen by Provider: 11/15/18 12:05 Hx Obtained From: Patient, Family/Dry End Operator - Familu Onset/Duration: Gradual Onset, Still Present Timing: Constant Aggravating: Nothing Alleviating: Nothing Associated Signs & Symptoms: Dizzy, Chest Pain, Shortness of Breath - Allergy/Home Medications Allergies/Adverse Reactions: Allergies Allergy/AdvReac Type Severity Reaction Status Date / Time codeine Allergy Rash Verified 11/15/18 12:03 latex AdvReac Rash Verified 11/15/18 12:03 PMH/Surg Hx/FS Hx/Imm Hx Endocrine/Hematology History: Denies: Hx Diabetes Cardiovascular History: Reports: Hx Hypertension, Hx Valvular Heart Disease - mitral valve replacement Denies: Hx Pacemaker/ICD Respiratory History: Reports: Other Respiratory Problems/Disorders - sinusitis GI History: Reports: Hx Gastroesophageal Reflux Disease Denies: Other GI Disorders History: Denies: Hx Renal Disease, Other Problems/Disorders Musculoskeletal History: Reports: Hx Arthritis - left knee left thumb Denies: Hx Osteoporosis, Other Musculoskeletal History Sensory History: Reports: Hx Cataracts - [place], Hx Contacts or Glasses - glasses Denies: Hx Hearing Aid Opthamlomology History: Reports: Hx Cataracts - [place], Hx Contacts or Glasses - glasses Neurological History: Reports: Hx Transient Ischemic Attacks (TIA) Denies: Other Neuro Impairments/Disorders Psychiatric History: Denies: Hx Panic Disorder, Other Psychiatric Issues/Disorders - Cancer History Cancer Type, 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 MITRAL VALVE REPAIR-PT HAS CARDS THAT STATE MRI SAFE NO METAL 2013. TUBAL LIGATION. BILATERAL CATARACT SURGERY Hx Anesthesia Reactions: No Infectious Disease History: No Infectious Disease History: Denies: Traveled Outside the [place] in Last 30 Days - Family History Known Family History: Positive: Hypertension - Social History Alcohol Use: Weekly Alcohol Amount: 3 per week Hx Substance Use: No Substance Use Type: Reports: None Hx Tobacco Use: No Smoking Status (MU): Never Smoked Tobacco Review of Systems Negative: Skin Diaphoresis Positive: Chest Pain - tightness. Negative: Palpitations Positive: Shortness Of Breath Negative: Vomiting, Diarrhea, Nausea Genitourinary: Negative Neurological: Other - Dizziness, mild aphasia Positive: Weakness - generalized, Syncope - Near All Other Systems Reviewed And Are Negative: Yes Physical Exam - Summary Physical Exam Summary: Appearance: Well appearing, mild pain distress Skin: warm, dry, reflects adequate perfusion Head/face: normal Eyes: EOMI, NIRAV ENT: mucous membranes moist Neck: supple, non-tender Respiratory: CTA, breath sounds present Cardiovascular: irregularly irregular and rapid rhythm, pulses symmetrical, no LE edema Abdomen: non-tender, soft Bowel Sounds: present Musculoskeletal: normal, strength/ROM intact Neuro: normal, sensory motor intact, A&Ox3 Triage Information Reviewed: Yes Vital Signs On Initial Exam: Initial Vitals Temp Pulse Resp BP Pulse Ox 97.7 F 111 20 88/52 98 11/15/18 12:00 11/15/18 12:00 11/15/18 12:00 11/15/18 12:00 11/15/18 12:00 Vital Signs Reviewed: Yes Diagnostics - Vital Signs Vital Signs Temp Pulse Resp BP Pulse Ox 11/15/18 12:00 97.7 F 111 20 88/52 98 - Laboratory Result Diagrams: 11/15/18 12:43 11/15/18 12:43 Lab Statement: Any lab studies that have been ordered have been reviewed, and results considered in the medical decision making process. - Radiology CXR Radiology Interpretation Completed By: Radiologist Summary of Radiographic Findings: In the correct clinical setting chest x-ray findings could be compatible with mild vascular congestion. ED physician reviewed radiology report. - EKG 12 Cardiac Rate: Other Rate - Rapid AFib - 141 bpm EKG Rhythm: Atrial Fibrillation ST Segment: Normal Summary of EKG Findings: Nl axis 12:45 Cardiac Rate: NL - 76 bpm EKG Rhythm: Sinus Rhythm ST Segment: Normal Summary of EKG Findings: Nl axis, nl intervals Re-Evaluation - Re-Evaluation First Eval Re-Evaluation Time: 12:35 Change: Improved Comment: Pt has cardioverted on her own. Course/Dx - Course Course Of Treatment: Nurse's notes reviewed. Patient was rapid atrial fibrillation on arrival. Labs were drawn and the patient spontaneously converted to normal sinus rhythm. She is given IV beta tito to keep her sinus. Discussed with her probation manager to plans for outpatient follow-up. She will not need cardioversion etc. I did give her a dose of Eliquis here given the high likelihood of recurrance. D/C in good condition. - Diagnoses Differential Diagnosis/HQI/PQRI: Positive: Medication Induced, Paroxymal SVT, Other - afib, valvular dz, CAD Provider Diagnoses: Rapid atrial fibrillation - Physician Notifications Discussed Care Of Patient With: Galdino Bauer Time Discussed With Above Provider: 12:24 Instructed by Provider To: Other - Dr. Bauer agrees with cardioversion. - Critical Care Time Critical Care Time: 30-74 min - CCT is EXCLUSIVE of separately billable procedures. Discharge - Sign-Out/Discharge Documenting (check all that apply): Patient Departure - Discharge Patient Received Moderate/Deep Sedation with Procedure: No - Discharge Plan Condition: Improved Disposition: HOME Prescriptions: Apixaban* [Eliquis*] 5 mg PO BID #60 tab Patient Education Materials: A-fib (Atrial Fibrillation) (ED) Referrals: Galdino Bauer MD [Medical Doctor] - Coby Washington MD [Primary Care Provider] - Additional Instructions: Increase your metoprolol to 100 mg twice daily. Call cardiology today to schedule prompt follow-up. Return with return of palpitations, chest pain, difficulty breathing, worse, new symptoms or other concerns as discussed. - Billing Disposition and Condition Condition: IMPROVED Disposition: Home - Attestation Statements Document Initiated by Scribe: Yes Documenting Scribe: Stephanie Phillip Provider For Whom Scribe is Documenting (Include Credential): Felipe Flores MD Scribe Attestation: Stephanie Lynn, scribed for Felipe Flores MD on 11/15/18 at 1423. Scribe Documentation Reviewed: Yes Provider Attestation: The documentation as recorded by the clotildeibStephanie simpson accurately reflects the service I personally performed and the decisions made by me, Felipe Flores MD Status of Scribe Document: Viewed
[2018-11-15] MEDS ORDERED: Diltiazem IV* 5 MG/ML 5 ML VIAL (for loading dose/IV Push) (25 MG) IV SLOW PU ONE (12:29)
[2018-11-15] MEDS ORDERED: Propofol* 10 MG/ML 20 ML BTL IV PUSH ONE (12:29)
[2018-11-15] MEDS ORDERED: Apixaban* 5 MG TAB PO ONE (12:30)
[2018-11-15] MEDS ORDERED: NS 0.9% 1000 ML** 1,000 ML IV ONE (12:30)
[2018-11-15] MEDS ORDERED: Metoprolol Tartrate IV* 1 MG/ML 5 ML VIAL IV ONE (12:40)
[2018-11-15 12:49] LABS: ABS Basophils 0.1 10^3/ul (0-0.2); ABS Eosinophils 0.1 10^3/ul (0-0.6); ABS Lymphocytes 1.5 10^3/ul (1.0-4.8); ABS Monocytes 0.5 10^3/ul (0-0.8); ABS Neutrophils 6.3 10^3/ul (1.5-7.7); ABS Nucleated RBC 0 10^3/ul; Eosinophil % 1.6 %; Hematocrit 40 % (35-47); Hemoglobin 13.2 g/dl (12.0-16.0); Lymphocyte % 17.2 %; Mean Corpuscular HGB Conc 34 g/dl (31-36); Mean Corpuscular Hemoglobin 30 pg (27-31); Mean Corpuscular Volume 89 fL (80-97); Mean Platelet Volume 8.7 fL (7.4-10.4); Nucleated Red Blood Cells % 0; Platelet Count 242 10^3/ul (150-450); Red Blood Count 4.43 10^6/ul (4.00-5.40); Red Cell Distribution Width 14 % (10.5-15); White Blood Count 8.5 10^3/ul (3.5-10.8)
[2018-11-15 12:58] LABS: INR 0.89 (0.77-1.02)
[2018-11-15 13:06] LABS: Albumin 3.8 g/dL (3.2-5.2); Albumin/Globulin Ratio 1.1 (1-3); BUN/Creatinine Ratio 33.3 (8-20); Calcium 9.6 mg/dL (8.6-10.3); EGFR African American 98.3 (>60); EGFR Non-African American 81.3 (>60); Globulin 3.4 g/dL (2-4); Potassium 3.7 mmol/L (3.5-5.0); Total Bilirubin 0.5 mg/dL (0.2-1.0); Total Protein 7.2 g/dL (6.4-8.9)
[2018-11-15 13:07] LABS: Troponin I 0.01 ng/mL (<0.04)
[2018-11-15 13:55] LABS: TSH (Thyroid Stimulating Horm) 4.26 mcIU/mL (0.34-5.60)
[2018-11-15 14:18] VITALS: BP 143/66
== END 2018-11-15 14:17 | disposition home or self-care (01) ==
LOC: ED 11:51
DX: I48.91 Unspecified atrial fibrillation (principal); R42 Dizziness and giddiness; R07.9 Chest pain, unspecified; R06.2 Wheezing; Z88.6 Allergy status to analgesic agent; I10 Essential (primary) hypertension; Z95.4 Presence of other heart-valve replacement; Z86.73 Personal history of transient ischemic attack (TIA), and cerebral infarction without residual deficits; R55 Syncope and collapse
CPT/HCPCS: 36415; 71045; 80053; 83605; 83880; 84443; 84484; 85025; 85610; 93005; 96361; 96374; 96375; 99283; J2704; J3490

== ENCOUNTER 2019-06-20 18:28 | Emergency (ER) | payer MEDICARE, BC ==
--- NOTE | 2019-06-20 21:40 | ED ---
Laceration/Wound HPI - HPI Summary HPI Summary: Patient complains of lacerations to face after walking into a tree. Patient is on Eliquis and was unable to stop bleeding. Patient denies LINO, LOC, vision change. Denies any other pain, injuries or symptoms. Tetanus status up-to- date. - History of Current Complaint Stated Complaint: FACE INJURY PER PT Hx Obtained From: Patient Mechanism of Injury: Sharp/Blunt Trauma Aggravating: Nothing Alleviating: Nothing Onset Severity: Mild Current Severity: Mild Pain Intensity: 1 Pain Scale Used: 0-10 Numeric Associated Signs & Symptoms: Negative Related Hx: Anticoagulat Use - Additional Pertinent History Primary Care Physician: [id number] - Allergy/Home Medications Allergies/Adverse Reactions: Allergies Allergy/AdvReac Type Severity Reaction Status Date / Time codeine Allergy Rash Verified 11/15/18 12:03 latex AdvReac Rash Verified 11/15/18 12:03 Home Medications: Home Medications Apixaban* [Eliquis*] 5 mg PO BID 06/20/19 [History Confirmed 06/20/19] Calcium Citrate TAB* [Citracal TAB*] 600 mg PO DAILY 06/20/19 [History Confirmed 06/20/19] Cetirizine* [ZyrTEC 10 MG TAB*] 10 mg PO QPM 06/20/19 [History Confirmed ] Magnesium Oxide TAB* [MagOx 400 TAB*] 400 mg PO DAILY 06/20/19 [History Confirmed 06/20/19] Metoprolol Tartrate TAB* [Lopressor TAB*] 100 mg PO BID 06/20/19 [History Confirmed 06/20/19] Multivitamins/Minerals TAB* [Theragran/minerals TAB*] 1 tab PO DAILY 06/20/19 [ History Confirmed 06/20/19] Raloxifene (NF) [Evista(NF)] 60 mg PO DAILY 06/20/19 [History Confirmed 06/20/19 ] PMH/Surg Hx/FS Hx/Imm Hx Endocrine/Hematology History: Denies: Hx Diabetes Cardiovascular History: Reports: Hx Hypertension, Hx Valvular Heart Disease - mitral valve replacement Denies: Hx Pacemaker/ICD Respiratory History: Reports: Other Respiratory Problems/Disorders - sinusitis GI History: Reports: Hx Gastroesophageal Reflux Disease Denies: Other GI Disorders History: Denies: Hx Renal Disease, Other Problems/Disorders Musculoskeletal History: Reports: Hx Arthritis - left knee left thumb Denies: Hx Osteoporosis, Other Musculoskeletal History Sensory History: Reports: Hx Cataracts - [place], Hx Contacts or Glasses - glasses Denies: Hx Hearing Aid Opthamlomology History: Reports: Hx Cataracts - [place], Hx Contacts or Glasses - glasses EENT History: Denies: Hx Deafness Neurological History: Reports: Hx Transient Ischemic Attacks (TIA) Denies: Other Neuro Impairments/Disorders Psychiatric History: Denies: Hx Panic Disorder, Other Psychiatric Issues/Disorders - Cancer History Cancer Type, 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 MITRAL VALVE REPAIR-PT HAS CARDS THAT STATE MRI SAFE NO METAL 2013. TUBAL LIGATION. BILATERAL CATARACT SURGERY Hx Anesthesia Reactions: No Infectious Disease History: No Infectious Disease History: Denies: Traveled Outside the [place] in Last 30 Days - Family History Known Family History: Positive: Hypertension - Social History Alcohol Use: Weekly Alcohol Amount: 3 per week Hx Substance Use: No Substance Use Type: Reports: None Hx Tobacco Use: No Smoking Status (MU): Never Smoked Tobacco Review of Systems Constitutional: Negative Eyes: Negative ENT: Negative Cardiovascular: Negative Respiratory: Negative Gastrointestinal: Negative Genitourinary: Negative Musculoskeletal: Negative Skin: Other Neurological: Negative Psychological: Normal All Other Systems Reviewed And Are Negative: Yes Physical Exam Triage Information Reviewed: Yes Vital Signs On Initial Exam: Initial Vitals Temp Pulse Resp BP Pulse Ox 97.7 F 78 18 197/99 95 06/20/19 18:45 06/20/19 18:45 06/20/19 18:45 06/20/19 18:45 06/20/19 18:45 Vital Signs Reviewed: Yes Appearance: Positive: Well-Appearing Skin: Positive: Warm Head/Face: Positive: Normal Head/Face Inspection Eyes: Positive: Normal Neck: Positive: Supple Respiratory/Lung Sounds: Positive: Clear to Auscultation Cardiovascular: Positive: Normal Abdomen Description: Positive: Nontender Musculoskeletal: Positive: Normal Neurological: Positive: Normal Psychiatric: Positive: Normal AVPU Assessment: Alert - Regent Coma Scale Best Eye Response: 4 - Spontaneous Best Motor Response: 6 - Obeys Commands Best Verbal Response: 5 - Oriented Coma Scale Total: 15 Procedures - Sedation Patient Received Moderate/Deep Sedation with Procedure: No - Laceration/Wound Repair 1 Location: mouth - Lateral anterior corner of lower lip. No involvement of vermilion border. Description: Linear Anesthesia: Local, 1.0% Length, Depth and Shape: 2cmx .5cm Betadine Prep?: No Irrigated w/ Saline (ccs): 100 Laceration/Wound Explored: clean Debridement: minimal Number of Sutures: 1 - 6. 0 Vicryl Layer Closure?: No Sterile Dressing Applied?: No 2 Location: face - Laceration over point of nose Description: Linear Anesthesia: Local, 1.0% Length, Depth and Shape: 2cm x .5cm Betadine Prep?: No - Chlorhexidine Irrigated w/ Saline (ccs): 100 Laceration/Wound Explored: clean Debridement: minimal Number of Sutures: 3 - 6. 0 Ethilon Layer Closure?: No Sterile Dressing Applied?: No 3 Location: face - Base of right nostril Description: Linear Anesthesia: Local, 1.0% Length, Depth and Shape: 1.5cmx .5cm Betadine Prep?: No Irrigated w/ Saline (ccs): 200 Laceration/Wound Explored: clean Debridement: minimal Number of Sutures: 2 - 6. 0 Ethilon Layer Closure?: No Sterile Dressing Applied?: No 4 Location: face - Right cheek Description: Linear Anesthesia: Local, 1.0% Length, Depth and Shape: 1cm x .5cm Betadine Prep?: No Irrigated w/ Saline (ccs): 100 Laceration/Wound Explored: clean Debridement: minimal Number of Sutures: 1 - 6.0 ethilon Layer Closure?: No Sterile Dressing Applied?: No Diagnostics - Vital Signs Vital Signs Temp Pulse Resp BP Pulse Ox 06/20/19 20:40 97.4 F 74 18 202/84 97 06/20/19 18:45 97.7 F 78 18 197/99 95 - Laboratory Lab Statement: Any lab studies that have been ordered have been reviewed, and results considered in the medical decision making process. Laceration Repair Course/Dx - Course Course Of Treatment: Patient complains of lacerations to face after walking into a tree. Patient is on Eliquis and was unable to stop bleeding. Patient denies LINO, LOC, vision change. Denies any other pain, injuries or symptoms. Tetanus status up-to-date. Vital signs within normal limits. Bleeding controlled. Wounds cleaned and sutured. - Clinical Impression Provider Diagnoses: Face lacerations Discharge ED - Sign-Out/Discharge Documenting (check all that apply): Patient Departure Patient Received Moderate/Deep Sedation with Procedure: No - Discharge Plan Condition: Stable Disposition: HOME Patient Education Materials: Care For Your Stitches (ED), Facial Laceration (ED ) Referrals: Coby Washington MD [Primary Care Provider] - Additional Instructions: Sutures out in 5 days. You may wash face with warm running water and soap. Do not submerge face underwater for 4 days. Follow-up with primary care. - Billing Disposition and Condition Condition: STABLE Disposition: Home - Attestation Statements Provider Attestation: pt seen by midlevel provider independently, based on their assessment, it was not necessary to present the case to me but I was available for consultation. I did not form a physician-patient relationship with the patient. The chart however, has been reviewed. am signing this note strictly in an administrative capacity.
[2019-06-20] MEDS ORDERED: Lidocaine 1% MPF ** 5 ML VIAL INJ ONE (22:17)
[2019-06-21 00:09] VITALS: BP 189/76
== END 2019-06-21 00:08 | disposition home or self-care (01) ==
LOC: ED 18:28
DX: S01.411A Laceration without foreign body of right cheek and temporomandibular area, initial encounter (principal); S01.21XA Laceration without foreign body of nose, initial encounter; S01.511A Laceration without foreign body of lip, initial encounter; W22.09XA Striking against other stationary object, initial encounter; Y92.9 Unspecified place or not applicable; Z79.01 Long term (current) use of anticoagulants; I10 Essential (primary) hypertension; Z95.4 Presence of other heart-valve replacement; K21.9 Gastro-esophageal reflux disease without esophagitis; Z86.73 Personal history of transient ischemic attack (TIA), and cerebral infarction without residual deficits
CPT/HCPCS: 12014; 99282

== ENCOUNTER 2020-01-24 21:15 | Emergency (ER) | payer MEDICARE, BC ==
--- OUTSIDE RECORDS SUMMARY | 2020-01-24 21:29 | XMS REPORT | Continuity of Care Document ---
:1935 External Reference #:[id number] Author Name Shaji Latif MD (transmitted by agent of provider Sharon Daniel) Address [address] [place] [address] Care Team Providers Name Role Phone Sherri Flores MD - Vascular Care Team Information Employee Benefits Administrator Surgery Sarah Reyes - Spike Driver Care Team Information Employee Benefits Administrator [phone] Genia - Physical Therapist Care Team Information Employee Benefits Administrator [phone] 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 Onset: 02/20/2011 Essential hypertension Altagracia Hogue M.D. Onset: 02/20/2011 Mitral valve disorder Altagracia Hogue M.D. Onset: 02/20/2011 Pure hypercholesterolemia Altagracia Hogue M.D. Onset: 02/20/2011 Social History Type Date Description Comments Sex Unknown Tobacco Use Start: Unknown Never Smoked Cigarettes ETOH Use Currently consumes 1 glasses of wine weekly Tobacco Use Start: Unknown Patient has never smoked Smoking Status Reviewed: 06/12/19 Patient has never smoked Allergies, Adverse Reactions, Alerts Active Allergies Reaction Severity Comments Date Codeine 07/25/2014 Inactive Allergies NKDA 06/17/2006 Medications Active Medications SIG Qnty Indications Ordering Date Provider Magnesium xanedr Hobson 11/23/2019 400mg Tablets glycinate /2-1 Gypsy Wheatley tablet per day Amlodipine Besylate 1 by mouth every 30tabs Shaji 06/12/2019 5mg Tablets day MD Bhavya Lorazepam take one tablet 14tabs F43.22 Shaji 01/02/2019 0.5mg Tablets up to twice a MD Bhavya day for anxiety Mometasone Furoate 2 Sprays Into 17units Coby 11/17/2018 50mcg/Act Each Nostril Messi, Suspension Every Morning as Gypsy R.D. Needed For Nasal Congestion Raloxifene HCL Take One Tablet 90tabs M81.0 Coby 08/03/2018 60mg Tablets By Mouth Every Messi, Day Gypsy, R.Antoine. Irbesartan Take 1 Tablet By 90tabs Coby 04/25/2018 300mg Tablets Mouth Once Daily Gypsy Swenson, R.D. Metoprolol Tartrate Take One Tablet 60tabs Coby 01/12/2018 50mg By Mouth Twice A Messi, Tablets Day Gypsy, R.D. Metoprolol Tartrate Take One Tablet 60tabs Coby 01/12/2018 50mg By Mouth Twice A Messi, Tablets Day Gypsy, R.D. [facility] 06/30/2017 Powder Gypsy Swenson, R.D. Senior Multivitamin Plus [facility] 07/23/2014 Messi, Tablets Gypsy, R.D. Glucosamine Chondroitin [facility] 07/23/2014 1500 Complex Messi, 1500Com Capsules Gypsy, R.D. Hydrochlorothiazide Take One Tablet 90tabs I10 [facility] 12/25/2013 25mg By Mouth Every Messi, Tablets Day Gypsy, R.D. Omeprazole Take 1 Capsule 60caps [facility] 02/16/[address] By Mouth 1 Or 2 Messi, Times Daily For M.DCrescencio, R.D. Reflux Or Eructation Zyrtec one [facility] prn 30tabs 473.9 Altagracia Gama 07/16/2006 10mg Tablets allergies Gypsy Hogue Eliqusukhwinder Brand, 5mg Tablets MD Galdino Immunizations CPT Code Status Date Vaccine Lot # [id number] Given 06/28/2019 Influenza Vaccine High Dose PF [id number] 77928 Given 06/12/2019 Tdap (Adacel) [id number] 39472 Given 09/02/2018 Influenza Vaccine High Dose PF [id number] 52610 Given 06/30/2017 Influenza Vaccine High Dose PF [id number] 55197 Given 07/10/2016 Influenza Vaccine High Dose PF [id number] 06717 Given 07/25/2015 Influenza Vaccine High Dose PF [id number] 36775 Given 10/15/2014 Prevnar-13 Pneumococcal Conjugate Vaccine [id number] 19823 Given 09/05/2014 Influenza Vaccine High Dose PF [id number] 39179 Given 08/10/2013 Influenza Vaccine High Dose PF [id number] 17482 Given 08/12/2012 Influenza Vaccine-Preservative Free 3 Yrs And [id number] Above 78464 Given 08/21/2011 Influenza Vaccine-Preservative Free 3 Yrs And [id number] Above 46524 Given 08/07/2010 Influenza Vaccine-Preservative Free 3 Yrs And [id number] Above 19981 Given 10/22/2009 Influenza Vaccine-Preservative Free 3 Yrs And [id number] Above 77087 Given 12/19/2008 Zoster Vaccine [id number] 24778 Given 08/10/2008 Influenza Virus Vaccine, 3 Yrs And Above [id number] 79282 Given 03/19/2008 Td Age 7 to adult [facility], [place] [id number] 42948 Given 03/13/2008 [facility] Age 7 [facility] adult [facility] [place], [place] [employer] [address] Given 07/26/2007 Influenza Virus Vaccine, 3 Yrs And Above [id number] 42726 Given 07/16/2006 Influenza Virus Vaccine, 3 Yrs And Above [id number] 08997 Given 09/07/2005 Pneumovax 23 (PPSV23) 65+ years or high risk 2 to 64 year old 03455 Given 09/05/2004 Influenza Virus Vaccine, 3 Yrs And Above 10211 Given 07/24/2003 Influenza Virus Vaccine, 3 Yrs And Above 58917 Given 07/24/2003 Influenza Virus Vaccine, 3 Yrs And Above 57414 Given 10/09/2002 Influenza Virus Vaccine, 3 Yrs And Above 53219 Given 08/18/2000 Influenza Virus Vaccine, 3 Yrs And Above 85893 Given 08/05/1999 Influenza Virus Vaccine, 3 Yrs And Above 18590 Given 08/14/1998 Influenza Virus Vaccine 24281 Given 04/25/1997 DT (Adult) 72180 Given 07/18/1996 Influenza Virus Vaccine Vital Signs Date Vital Result Comment 07/01/2019 9:24am Weight 158.00 lb Weight 71.669 kg BP Systolic 124 mmHg BP Diastolic 86 mmHg Heart Rate 63 /min Body Temperature 97.6 F O2 % BldC Oximetry 97 % 06/28/2019 10:45am Weight 158.00 lb Weight 71.669 kg BP Systolic 100 mmHg BP Diastolic 68 mmHg Heart Rate 60 /min Body Temperature 96.8 F Respiratory Rate 16 /min Results Test Acquired Date Facility Test Result H/L Range Note Laboratory test 10/18/2019 [facility] Magnesium 1.6 mg/dL Low 1.9-2.7 1 finding [phone] Laboratory test 08/08/2019 [facility] Magnesium 1.7 mg/dL Low 1.9-2.7 2 finding [phone] Basic Metabolic 08/08/2019 [facility] Sodium 133 mmol /L Low 135-145 Panel [phone] Potassium 3.9 mmol/L Normal 3.5-5.0 Chloride 100 mmol/L Low 101-111 Co2 Carbon Dioxide 31 mmol/L Normal 22-32 Anion Gap 2 mmol/L Normal 2-11 Glucose 85 mg/dL Normal 70-100 Blood Urea Nitrogen 20 mg/dL Normal 6-24 Creatinine 0.81 mg/dL Normal 0.51-0.95 BUN/Creatinine Ratio 24.7 High 8-20 Calcium 9.3 mg/dL Normal 8.6-10.3 Egfr Non- 67.4 >60 Egfr 81.5 >60 3 1 [id number] 2 [id number] 3 Because ethnic data is not always readily available, this report includes an eGFR for both -Americans and non- Americans. The National Kidney Disease Education Program (NKDEP) does not endorse the use of the MDRD equation for patients that are not between the ages of 18 and 70, are , have extremes of body size, muscle mass, or nutritional status, or are non- or non-. According to the National Kidney Foundation, irrespective of diagnosis, the stage of the disease is based on the level of kidney function: Stage Description GFR(mL/min/1.73 m(2)) 1 Kidney damage with normal or decreased GFR 90 2 Kidney damage with mild decrease in GFR 60-89 3 Moderate decrease in GFR 30-59 4 Severe decrease in GFR 15-29 5 Kidney failure <15 (or dialysis) Procedures Description No Information Available Medical Devices Description No Information Available Encounters Type Date Location Provider Dx Diagnosis Office Visit 01/23/2020 Main Office Teo Khalil Essential ( primary) 3:00p hypertension Assessments Date Code Description Provider 01/23/2020 I10 Essential (primary) hypertension Shaji Latif MD 10/18/2019 E83.42 Hypomagnesemia Coby Swenson M.D., R.D. 10/18/2019 E83.42 Hypomagnesemia [facility] 08/08/2019 E83.42 Hypomagnesemia Coby Swenson M.D., R.D. 08/08/2019 E83.42 Hypomagnesemia [facility] 08/08/2019 I10 Essential (primary) hypertension Coby Swenson M.D., R.D. 08/08/2019 I10 Essential (primary) hypertension [facility] Plan of Treatment Future Appointment(s):06/07/2020 8:00 am - [facility] Main Xxdryd7506/17/2020 1:45 pm - Coby Swenson M.D., R.D. at Main Angoio4601/23/2020 - Shaji Latif [id number] Essential (primary) hypertensionComments:She is having a relatively severe exacerbation of her blood pressure. Last time this worked almost too well. She had to stop it.This shows a pattern of poorly controlled blood pressure off amlodipine, and over controlled blood pressure when she remains on amlodipine.It seems like the medicine is working extremely well for her. In the case that she ends up overtreated again, I would try lowering 1 of her other blood pressure medicines or eliminating it. 5 mg of amlodipine seems to be affecting her blood pressure more than might be expected.She will check her blood pressure daily for the next couple of weeks. Functional Status Description No Information Available Mental Status Description No Information Available Referrals Description No Information Available
--- OUTSIDE RECORDS SUMMARY | 2020-01-24 21:29 | XMS REPORT | Continuity of Care Document ---
:1935 External Reference #:[id number] Author Name Shaji Latif MD (transmitted by agent of provider [facility]) Address [address] [place] [address] Care Team Providers Name Role Phone Sherri Flores MD - Vascular Care Team Information Keyliner [phone] Surgery Sarah Reyes - Sheet Sorter Care Team Information Keyliner [phone] Genia - Physical Therapist Care Team Information Keyliner [facility] - Physical Care Team Information Keyliner Therapist Problems Active Problems Provider Date Varicose [...] SIG Qnty Indications Ordering Date Provider Magnesium xander Hobson 11/23/2019 400mg Tablets glycinate /2-1 Gypsy [...] A Messi, Tablets Day Gypsy, R.D. Citrucel [facility] 06/30/2017 Powder Gypsy Swenson, R.D. Senior Multivitamin Plus [facility] 07/23/2014 Messi, Tablets Gypsy, R.D. Glucosamine Chondroitin [facility] 07/23/2014 1500 Complex Messi, 1500Com Capsules Gypsy, R.D. Hydrochlorothiazide Take One Tablet 90tabs I10 [facility] 12/25/2013 25mg By Mouth Every Messi, Tablets Day Gypsy, R.D. Omeprazole Take 1 Capsule 60caps [facility] 02/16/[address] By Mouth 1 Or 2 Messi, Times Daily For M.DCrescencio, R.D. Reflux Or Eructation Zyrtec one [facility] prn 30tabs 473.9 Altagracia Gama 07/16/2006 10mg Tablets allergies Gypsy Hogue Eliqusukhwinder Brand, 5mg Tablets MD Galdino Immunizations CPT Code Status Date Vaccine Lot # [id number] Given 06/28/2019 Influenza Vaccine High Dose PF [id number] 78176 Given 06/12/2019 Tdap (Adacel) [id number] 65150 Given 09/02/2018 Influenza Vaccine High Dose PF [id number] 95878 Given 06/30/2017 Influenza Vaccine High Dose PF [id number] 17800 Given 07/10/2016 Influenza Vaccine High Dose PF [id number] 08180 Given 07/25/2015 Influenza Vaccine High Dose PF [id number] 78676 Given 10/15/2014 Prevnar-13 Pneumococcal Conjugate Vaccine [id number] 00158 Given 09/05/2014 Influenza Vaccine High Dose PF [id number] 77442 Given 08/10/2013 Influenza Vaccine High Dose PF [id number] 38176 Given 08/12/2012 Influenza Vaccine-Preservative Free 3 Yrs And [id number] Above 20172 Given 08/21/2011 Influenza Vaccine-Preservative Free 3 Yrs And [id number] Above 04769 Given 08/07/2010 Influenza Vaccine-Preservative Free 3 Yrs And [id number] Above 14801 Given 10/22/2009 Influenza Vaccine-Preservative Free 3 Yrs And [id number] Above 86604 Given 12/19/2008 Zoster Vaccine [id number] 00061 Given 08/10/2008 Influenza Virus Vaccine, 3 Yrs And Above [id number] 19238 Given 03/19/2008 Td Age 7 to adult [place], [place] [id number] 26038 Given 03/13/2008 Td Age 7 [facility] adult [facility], [place], [place] [employer] 36091 Given 07/26/2007 Influenza Virus Vaccine, 3 Yrs And Above [id number] 79979 Given 07/16/2006 Influenza Virus Vaccine, 3 Yrs And Above 23067 91270 Given 09/07/2005 Pneumovax 23 ([id number]) 65+ years or high risk 2 to 64 year old 21449 Given 09/05/2004 Influenza Virus Vaccine, 3 Yrs And Above 43987 Given 07/24/2003 Influenza Virus Vaccine, 3 Yrs And Above 19195 Given 07/24/2003 Influenza Virus Vaccine, 3 Yrs And Above 75801 Given 10/09/2002 Influenza Virus Vaccine, 3 Yrs And Above 01326 Given 08/18/2000 Influenza Virus Vaccine, 3 Yrs And Above 17383 Given 08/05/1999 Influenza Virus Vaccine, 3 Yrs And Above 18500 Given 08/14/1998 Influenza Virus Vaccine 87110 Given 04/25/1997 DT (Adult) 76605 Given 07/18/1996 Influenza Virus Vaccine Vital Signs [...] Result H/L Range Note Laboratory test 10/18/2019 [facility] Magnesium 1.6 mg/dL Low 1.9-2.7 1 finding [phone] Laboratory test 08/08/2019 [facility] Magnesium 1.7 mg/dL Low 1.9-2.7 2 finding [phone] Basic Metabolic 08/08/2019 [facility] Sodium 133 mmol /L Low 135-145 Panel [phone] Potassium 3.9 mmol/L Normal 3.5-5.0 Chloride 100 mmol/L Low 101-111 Co2 Carbon Dioxide 31 mmol/L Normal 22-32 Anion Gap 2 mmol/L Normal 2-11 Glucose 85 mg/dL Normal 70-100 Blood Urea Nitrogen 20 mg/dL Normal 6-24 Creatinine 0.81 mg/dL Normal 0.51-0.95 BUN/Creatinine Ratio 24.7 High 8-20 Calcium 9.3 mg/dL Normal 8.6-10.3 Egfr Non- 67.4 >60 Egfr 81.5 >60 3 1 [id number] 2 [id number] 3 Because ethnic data is not always [...] Medical Devices Description No Information Available Encounters Description No Information Available Assessments Date Code Description Provider 10/18/2019 E83.42 Hypomagnesemia Coby Swenson M.D., R.D. 10/18/2019 E83.42 Hypomagnesemia [facility] 08/08/2019 E83.42 Hypomagnesemia Coby Swenson M.D., R.D. 08/08/2019 E83.42 Hypomagnesemia [facility] 08/08/2019 I10 Essential (primary) hypertension Coby Swenson M.D., R.D. 08/08/2019 I10 Essential (primary) hypertension [facility] Plan of Treatment Future Appointment(s):06/07/2020 8:00 am - [facility]06/17/2020 1:45 pm - Coby Swenson M.D., R.D. at Main Office Functional Status Description No Information Available Mental Status Description No Information Available Referrals Description No Information Available
[2020-01-25] MEDS ORDERED: Albuterol/Ipratropium NEB.SOL* (2.5/0.5 MG) 3 ML NEB.SOLN INH ONE (01:06)
--- NOTE | 2020-01-25 01:06 | ED ---
Hypertension - HPI Summary HPI Summary: 84-year-old female presenting to [facility] with a chief complaint of elevated blood pressure for the last week. She reports that she has had high blood pressure readings for the last week despite being on Amlodipine and Metoprolol already. Two days ago, she spoke with her PCP who placed her on a third medication, Irbesartan. She took all three medications in the morning yesterday and had a normal reading. Last night, however, she did not take the second dose of Metoprolol and had a reading of 200+ systolic, warranting concern for presentation this morning. She denies any CP, SOB, nausea, or weakness/numbness/ tingling in the extremities. She endorses intermittent quick episodes of blurred vision throughout the week since her blood pressure has been elevated. She rates her symptoms 5/10 in severity. She is currently on Eliquis for blood clots, which she has been taking for about a year. Past medical history mitral valve replacement, GERD, arthritis, TIA, bilateral cataract surgery. Nonsmoker. Weekly alcohol use. No substance use. Medications reviewed. Allergies noted. - History of Current Complaint Chief Complaint: EDHypertension Stated Complaint: HIGH BLOOD PRESSURE PER PT Time Seen by Provider: 01/25/20 00:56 Hx Obtained From: Patient Onset/Duration: Started Days Ago, Still Present Timing: Intermittent Reported Blood Pressure Prior To Arrival: 200+ systolic Aggravating Factor(s): Nothing Alleviating Factor(s): Nothing Associated Signs & Symptoms: Vision Changes - blurred intertmittently - Allergies/Home Medications Allergies/Adverse Reactions: Allergies Allergy/AdvReac Type Severity Reaction Status Date / Time codeine Allergy Rash Verified 01/24/20 21:20 latex AdvReac Rash Verified 01/24/20 21:20 Home Medications: Home Medications Hydrochlorothiazide TAB* [Hydrodiuril TAB*] 25 mg PO QAM 01/31/18 [History Confirmed 01/24/20] Omeprazole CAP (NF) [Prilosec CAP* 20 MG] 20 mg PO DAILY 01/31/18 [History Confirmed 01/24/20] Acetaminophen TAB* [Tylenol TAB*] 650 mg PO Q4H PRN tab 02/12/18 [Rx Confirmed 01/24/20] Apixaban* [Eliquis*] 5 mg PO BID 06/20/19 [History Confirmed 01/24/20] Cetirizine* [ZyrTEC 10 MG TAB*] 10 mg PO QPM 06/20/19 [History Confirmed ] Metoprolol Tartrate TAB* [Lopressor TAB*] 100 mg PO BID 06/20/19 [History Confirmed 01/24/20] Raloxifene (NF) [Evista(NF)] 60 mg PO DAILY 06/20/19 [History Confirmed 01/24/20 ] Amlodipine Besylate [Norvasc] 5 mg PO QAM 01/24/20 [History Confirmed 01/24/20] Irbesartan 1 tab PO QAM 01/24/20 [History Confirmed 01/24/20] PMH/Surg Hx/FS Hx/Imm Hx Endocrine/Hematology History: Denies: Hx Diabetes Cardiovascular History: Reports: Hx Deep Vein Thrombosis, Hx Hypertension, Hx Valvular Heart Disease - mitral valve replacement Denies: Hx Pacemaker/ICD Respiratory History: Reports: Other Respiratory Problems/Disorders - sinusitis GI History: Reports: Hx Gastroesophageal Reflux Disease Denies: Other GI Disorders History: Denies: Hx Renal Disease, Other Problems/Disorders Musculoskeletal History: Reports: Hx Arthritis - left knee left thumb Denies: Hx Osteoporosis, Other Musculoskeletal History Sensory History: Reports: Hx Cataracts - [place], Hx Contacts or Glasses - glasses Denies: Hx Deafness, Hx Hearing Aid Opthamlomology History: Reports: Hx Cataracts - [place], Hx Contacts or Glasses - glasses Neurological History: Reports: Hx Transient Ischemic Attacks (TIA) Denies: Other Neuro Impairments/Disorders Psychiatric History: Denies: Hx Panic Disorder, Other Psychiatric Issues/Disorders - Cancer History Cancer Type, 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 MITRAL VALVE REPAIR-PT HAS CARDS THAT STATE MRI SAFE NO METAL 2013. TUBAL LIGATION. BILATERAL CATARACT SURGERY Hx Anesthesia Reactions: No - Immunization History Date of Tetanus Vaccine: 06/13/19 Infectious Disease History: No Infectious Disease History: Denies: Traveled Outside the [place] in Last 30 Days - Family History Known Family History: Positive: Hypertension - Social History Alcohol Use: Weekly Alcohol Amount: 3 per week Hx Substance Use: No Substance Use Type: Reports: None Hx Tobacco Use: No Smoking Status (MU): Never Smoked Tobacco - Additional Comments History Additional Comments: hypertension, DVT on Eliquis, mitral valve replacement, GERD, arthritis, TIA, bilateral cataract surgery Review of Systems - ROS Summary Review of Systems Summary: Home Medications Medication Instructions Recorded Confirmed Type Hydrochlorothiazide TAB* 25 mg PO QAM 01/31/18 01/24/20 History [Hydrodiuril TAB*] Omeprazole CAP (NF) [Prilosec CAP* 20 mg PO DAILY 01/31/18 01/24/20 History 20 MG] Acetaminophen TAB* [Tylenol TAB*] 650 mg PO Q4H PRN tab 02/12/18 01/24/20 Rx Apixaban* [Eliquis*] 5 mg PO BID 06/20/19 01/24/20 History Cetirizine* [ZyrTEC 10 MG TAB*] 10 mg PO QPM 06/20/19 01/24/20 History Metoprolol Tartrate TAB* 100 mg PO BID 06/20/19 01/24/20 History [Lopressor TAB*] Raloxifene (NF) [Evista(NF)] 60 mg PO DAILY 06/20/19 01/24/20 History Amlodipine Besylate [Norvasc] 5 mg PO QAM 01/24/20 01/24/20 History Irbesartan 1 tab PO QAM 01/24/20 01/24/20 History Positive: Blurred Vision - intermittent Negative: Chest Pain Negative: Shortness Of Breath Negative: Weakness, Paresthesia, Numbness All Other Systems Reviewed And Are Negative: Yes Physical Exam - Summary Physical Exam Summary: General: Well-developed, Well-nourished female. No acute distress. HEENT: Normocephalic, Atraumatic. Eyes: Conjuctiva normal, PERRL. Oropharynx: Clear, mucous membranes moist, (-) exudates. Neck: Soft, FROM, (-) lymphadenopathy, (-) thyromegaly, (-) JVD. Cardiovascular: Normal sinus rhythm, (-) murmur. Lungs: Clear to auscultation bilaterally (-) wheezes, (-) rales, (-) rhonchi. Abdomen: Soft, non-tender, non-distended, (-) organomegaly, normal bowel sounds. Back: (-) CVA tenderness Extremities: No edema. Skin: Warm, dry, (-) rash. Neuro: Alert and oriented x3, moves all extremities equally. No ataxia. No gait disturbance. No sensory deficit. Normal strength, normal sensation. Psychiatric: Mood normal, affect normal. Triage Information Reviewed: Yes Vital Signs On Initial Exam: Initial Vitals Temp Pulse Resp BP Pulse Ox 96.9 F 70 18 235/82 99 01/24/20 21:18 01/24/20 21:18 01/24/20 21:18 01/24/20 21:18 01/24/20 21:18 Vital Signs Reviewed: Yes Procedures - Sedation Patient Received Moderate/Deep Sedation with Procedure: No Diagnostics - Vital Signs Vital Signs Temp Pulse Resp BP Pulse Ox 01/25/20 00:48 69 195/77 97 01/25/20 00:46 69 95 01/24/20 23:22 97.7 F 68 16 160/65 97 01/24/20 21:18 96.9 F 70 18 235/82 99 - Laboratory Result Diagrams: 01/25/20 01:48 01/25/20 01:48 Lab Statement: Any lab studies that have been ordered have been reviewed, and results considered in the medical decision making process. - EKG 0136 Cardiac Rate: NL - 64 BPM EKG Rhythm: Sinus Rhythm Summary of EKG Findings: EKG at 0136 reveals normal sinus rhythm with rate of 64 BPM, no acute changes, no ischemic changes. This EKG was reviewed and interpreted by Dr. Driscoll. Re-Evaluation - Re-Evaluation First Eval Re-Evaluation Time: 02:30 Change: Improved Comment: BP improved to 182/79. Patient is safe for discharge. All results discussed. Hypertension Course/Dx - Course Course Of Treatment: 84-year-old female presents from home with headache and elevated blood pressures. Patient states she has been having elevated blood pressures all week. Just received a new medication from her PCP today. Today was her first dose. She has not taken her evening metoprolol. She states when she gets headache she knows her blood pressure is high. Tonight it was over 200 systolic she became very concerned about having a stroke. Patient denies any fevers or chills. No chest pain, cough, shortness of breath. No nausea vomiting. No urinary complaints. On physical exam no significant abnormalities. Other than blood pressure 235/82 automatic cuff. Workup demonstrates no sig significant abnormalities other than slightly elevated glucose. Normal troponin and no changes on EKG. Patient is given her evening dose of Lopressor. Resting quietly on monitor. Blood pressure comes down nicely. 182/79 upon discharge. Patient was discharged home. Advised her to continue taking the new medication for her blood pressure as well as her other 2. Follow up with PCP. Follow-up sooner for any worsening symptoms. - Diagnoses Provider Diagnoses: Hypertension, Headache - Critical Care Time Critical Care Statement: Critical care time is provided exclusive of any time spent performing procedures. Discharge ED - Sign-Out/Discharge Documenting (check all that apply): Patient Departure - Patient will be discharged home. - Discharge Plan Condition: Stable Disposition: HOME Patient Education Materials: Chronic Hypertension (DC) Referrals: Coby Washington MD [Primary Care Provider] - 3 Days Additional Instructions: Please continue to take your medications as prescribed. Follow up with your primary care provider in 2-3 days. Return to the emergency department for any new or worsening symptoms. - Billing Disposition and Condition Condition: STABLE Disposition: Home - Attestation Statements Document Initiated by Bharathibe: Yes Documenting Scribe: Mar Weber Provider For Whom Angelo is Documenting (Include Credential): Nahed Driscoll MD Scribe Attestation: IMar, scribed for Nahed Driscoll MD on 01/25/20 at 0441. Scribe Documentation Reviewed: Yes Provider Attestation: The documentation as recorded by the Mar bills accurately reflects the service I personally performed and the decisions made by me, Nahed Driscoll MD Status of Scribe Document: Viewed
[2020-01-25 01:58] LABS: ABS Basophils 0.1 10^3/ul (0-0.2); ABS Eosinophils 0.3 10^3/ul (0-0.6); ABS Lymphocytes 2.1 10^3/ul (1.0-4.8); ABS Monocytes 0.7 10^3/ul (0-0.8); ABS Neutrophils 4.8 10^3/ul (1.5-7.7); Eosinophil % 3.7 %; Hematocrit 40 % (35-47); Hemoglobin 13.7 g/dL (12.0-16.0); Lymphocyte % 26.1 %; Mean Corpuscular HGB Conc 35 g/dL (31-36); Mean Corpuscular Hemoglobin 31 pg (27-31); Mean Corpuscular Volume 89 fL (80-97); Mean Platelet Volume 8.8 fL (7.4-10.4); Platelet Count 194 10^3/uL (150-450); Red Blood Count 4.44 10^6 /uL (3.70-4.87); Red Cell Distribution Width 14 % (10-15); White Blood Count 7.9 10^3/uL (3.5-10.8)
[2020-01-25] MEDS ORDERED: Albuterol/Ipratropium NEB.SOL* (2.5/0.5 MG) 3 ML NEB.SOLN INH SCH (02:00)
[2020-01-25 02:03] LABS: INR 1.31 (0.82-1.09)
[2020-01-25 02:15] LABS: Albumin 3.9 g/dL (3.2-5.2); Albumin/Globulin Ratio 1.1 (1-3); BUN/Creatinine Ratio 29.1 (8-20); Calcium 9.1 mg/dL (8.6-10.3); EGFR African American 76.1 (>60); EGFR Non-African American 62.9 (>60); Globulin 3.5 g/dL (2-4); Potassium 3.7 mmol/L (3.5-5.0); Total Bilirubin 0.4 mg/dL (0.2-1.0); Total Protein 7.4 g/dL (6.4-8.9)
[2020-01-25 02:50] VITALS: BP 182/79
[2020-01-25 12:02] LABS: Magnesium 1.7 mg/dL (1.9-2.7)
== END 2020-01-25 02:50 | disposition home or self-care (01) ==
LOC: ED 21:15
DX: I10 Essential (primary) hypertension (principal); R51 Headache; H53.8 Other visual disturbances; E83.42 Hypomagnesemia; K21.9 Gastro-esophageal reflux disease without esophagitis; Z86.73 Personal history of transient ischemic attack (TIA), and cerebral infarction without residual deficits; Z95.4 Presence of other heart-valve replacement; Z88.6 Allergy status to analgesic agent; Z91.040 Latex allergy status; Z79.899 Other long term (current) drug therapy
CPT/HCPCS: 36415; 80053; 83735; 84484; 85025; 85610; 93005; 99282